=== PATIENT | female | born 1945 | race Caucasian/White ===

== ENCOUNTER 2018-06-04 09:23 | Inpatient (IN) ==
[2018-06-04] MEDS ORDERED: Furosemide 40 MG/4 ML VIAL IVP ONE (09:58)
--- NOTE | 2018-06-04 10:02 | Emergency Department Note ---
Disposition Clinical Impression: Pedal edema Dyspnea Qualifiers: Dyspnea type: unspecified Qualified Code(s): R06.00 - Dyspnea, unspecified Disposition: Admitted As Inpatient Condition: Fair General Adult HPI - General Chief complaint: ED Extremity Problem,Nontraumatic Stated complaint: BLE edema,anxiety Time Seen by Provider: 06/04/18 09:52 Source: patient Mode of arrival: ambulatory Limitations: no limitations Nursing Notes Reviewed: Yes Vital Signs Reviewed: Yes - History of Present Illness HPI Narrative: Patient with a history of COPD as well as CHF and recently diagnosed adenocarcinoma of lung disease Dr. Krishnan in radiation oncology presents for evaluation of increased swelling of the lower extremities which started proximally 2 weeks ago. Last Sunday she was placed on 80 mg of Lasix which she has been taking without increased urination or improvement of symptoms. The patient was seen at [facility] yesterday and placed on steroids and Levaquin for presumed COPD exacerbation versus pneumonia. The patient has not been having fevers or chills. She has not been having productive cough. The patient has had increased shortness of breath exertion as well as inability to lay flat. Patient underwent most recent hospital admission in May 08 at [place] for lung biopsy. The patient states that she is supposed to undergo a PET scan as well as a CAT scan that has been requested by Dr. Krishnan however due to her inability to lie flat she has not been able to get any of these tests performed. Outpatient management to get her to point to have these tests done and further progress her cancer workup and treatment has been unsuccessful. The patient will undergo further evaluation for CHF and fluid retention. Patient will receive IV Lasix. Patient will undergo admission for further treatment and management. - Related Data Home Medications Medication Instructions Recorded Confirmed Albuterol Sulfate [Albuterol 0 puff IH Q4HR 05/28/18 06/04/18 Inhaler] Aspirin Enteric Coated [Aspirin EC] 81 mg PO DAILY 05/28/18 06/04/18 Atorvastatin [Lipitor] 10 mg PO HS 05/28/18 06/04/18 Buspirone HCl [Buspar] 15 mg PO TID PRN 05/28/18 06/04/18 Esomeprazole Magnesium [Nexium] 20 mg PO DAILY 05/28/18 06/04/18 Furosemide [Lasix] 80 mg PO DAILY 05/28/18 06/04/18 Ipratropium/Albuterol Sulfate 3 ml IH Q4H PRN 05/28/18 06/04/18 [Iprat-Albut 0.5-3(2.5) mg/3 ml] Lisinopril [Zestril] 10 mg PO DAILY 05/28/18 06/04/18 Oxygen 1 each .ROUTE AD 05/28/18 06/04/18 Tiotropium [Spiriva] 18 mcg IH 0700 05/28/18 06/04/18 Mometasone/Formoterol [Dulera 200 2 puff IH BID 06/04/18 06/04/18 Mcg/5 Mcg Inhaler] levoFLOXacin [Levaquin] 500 mg PO DAILY 06/04/18 06/04/18 predniSONE [PredniSONE] 60 mg PO DAILY 06/04/18 06/04/18 Allergies Allergy/AdvReac Type Severity Reaction Status Date / Time Erythromycin Base AdvReac Rash Verified 05/28/18 14:59 All systems ED: reviewed and negative except as stated. Review of Systems: As Per HPI Constitutional: Denies: fever, chills ENT ED: Denies: congestion Cardiovascular: Reports: dyspnea on exertion. Denies: chest pain Respiratory: Reports: cough, dyspnea Gastrointestinal: Denies: abdominal pain, nausea Genitourinary: Denies: urgency Musculoskeletal: Denies: back pain Integumentary: Denies: rash, abrasion, lesions Neurological: Denies: headache Endocrine: Reports: fatigue Past Medical History - Social History Smoking Status: Current every day smoker Smokeless Tobacco Status: No Alcohol use: Reports: none Drug use: Reports: none Physical Exam General: Well appearing, nontoxic, no acute distress Head: Normocephalic Atraumatic Eyes: PERRL, EOMI ENT: Airway patent, no stridor Neck: supple Chest: Mildly decreased breath sounds Cardiac: Regular rhythm Abdomen: soft, nontender, nondistended; no guarding, rebound, or tenderness to percussion Musculoskeletal: Calves symmetric, nontender, +2 pitting edema through the cast Skin: No rash, normal skin tone Neuro: Alert and Oriented to person, place, and time; No focal deficit, CN 2-12 symmetric and intact Course - Reevaluation(s) Reevaluation #1: Patient does have an elevated white count was started on steroids as well as antibiotics yesterday. Patient has not had a productive cough change in sputum production. The patient's does not have significant CHF symptoms. She does have overall increased amounts of swelling and her overall picture is not clear. Discussed with the hospitalist her overall symptoms. This point she cannot undergo further evaluation for possible vascular congestion secondary to possible mass versus PE. At this time we will go ahead and admit the patient. The patient can receive Dopplers as well as further workup as an inpatient. The case was discussed with the hospitalist and he is agreeable with plan. Vital Signs Temperature 97.9 F 06/04/18 09:33 Pulse Rate 93 06/04/18 09:33 Respiratory Rate 18 06/04/18 09:33 Blood Pressure 168/82 06/04/18 09:33 O2 Sat by Pulse Oximetry 93 06/04/18 09:33 Temperature 97.7 F 06/04/18 18:48 Pulse Rate 106 06/04/18 18:48 Respiratory Rate 17 06/04/18 18:48 Blood Pressure 152/75 06/04/18 18:48 O2 Sat by Pulse Oximetry 91 06/04/18 18:48 Oxygen Delivery Oxygen Delivery Nasal Cannula Medical Decision Making - Lab Data Result diagrams: 06/04/18 10:06/04/18 10:09 Lab Results 06/04/18 06/04/18 06/04/18 Range/Units 10: 10: 10:09 WBC 15.3 H (4.3-11.1) K/mcL RBC 4.39 (3.82-4.97) M/mcL Hgb 11.2 L (11.5-15.4) g/dL Hct 34.2 L (35.3-44.9) % MCV 77.9 L (83.0-100.0) fL MCH 25.5 L (28.0-33.3) pg MCHC 32.7 (31.6-35.5) g/dL RDW 14.8 H (11.5-14.5) % Plt Count 357 (140-400) K/mcL MPV 9.3 L (9.4-12.4) fL Immature Gran % 0.9 (0-4) % Seg Neutrophils % 89.5 % Lymphocytes % 3.9 % Monocytes % 5.6 % Eosinophils % 0.0 % Basophils % 0.1 % Neutrophils # 13.7 H (1.6-8.9) K/mcL Lymphocytes # 0.6 (0.6-4.6) K/mcL Monocytes # 0.9 (0.0-1.3) K/mcL Eosinophils # 0.0 (0.0-0.6) K/mcL Basophils # 0.0 (0.0-0.2) K/mcL Sodium 126 L (136-145) mEq/L Potassium 3.7 (3.5-5.1) mEq/L Chloride 83 L (98-107) mEq/L Carbon Dioxide 34 H (23-29) mEq/L BUN 12 (8-23) mg/dL Creatinine 0.76 (0.60-1.20) mg/dL Est GFR ( Amer) > 60 (> 60) Est GFR (Non-Af Amer) > 60 (> 60) BUN/Creatinine Ratio 16 (6-26) Glucose 132 H (70-105) mg/dL Calculated Osmolality 264 L (280-300) Calcium 9.6 (8.6-10.3) mg/dL Total Bilirubin 0.4 (0.3-1.0) mg/dL Direct Bilirubin 0.1 (0.0-0.2) mg/dL Indirect Bilirubin 0.3 (0.0-1.2) mg/dL AST 10 L (13-39) Units/L ALT 7 (7-52) Units/L Alkaline Phosphatase 73 (34-104) Units/L Troponin I < 0.03 (< 0.04) ng/mL B-Natriuretic Peptide 43 (Less than 100) pg/mL Serum Total Protein 6.7 (6.4-8.9) g/dL Albumin 3.7 (3.5-5.7) g/dL Globulin 3.0 (2.4-3.5) g/dL Albumin/Globulin Ratio 1.2 (1.1-2.2)
[2018-06-04] MEDS ORDERED: *HR* LORazepam 2 MG/ML VIAL IVP ONE ×2 (10:20→11:24)
[2018-06-04 10:27] LABS: Basophils % 0.1 %; Hematocrit 34.2 % (35.3-44.9); Hemoglobin 11.2 g/dL (11.5-15.4); Immature Granulocytes % 0.9 % (0-4); Lymphocytes # 0.6 K/mcL (0.6-4.6); Lymphocytes % 3.9 %; Mean Corpuscular HGB Conc 32.7 g/dL (31.6-35.5); Mean Corpuscular Hemoglobin 25.5 pg (28.0-33.3); Mean Corpuscular Volume 77.9 fL (83.0-100.0); Mean Platelet Volume 9.3 fL (9.4-12.4); Monocytes # 0.9 K/mcL (0.0-1.3); Monocytes % 5.6 %; Neutrophils # 13.7 K/mcL (1.6-8.9); Platelet Count 357 K/mcL (140-400); Red Blood Count 4.39 M/mcL (3.82-4.97); Red Cell Distribution Width 14.8 % (11.5-14.5); Segmented Neutrophils % 89.5 %
[2018-06-04 10:48] LABS: Alanine Aminotransferase 7 Units/L (7-52); Albumin 3.7 g/dL (3.5-5.7); Albumin/Globulin Ratio 1.2 (1.1-2.2); Alkaline Phosphatase 73 Units/L (34-104); Aspartate Amino Transferase 10 Units/L (13-39); BUN/Creatinine Ratio 16 (6-26); Bilirubin,Direct 0.1 mg/dL (0.0-0.2); Bilirubin,Indirect 0.3 mg/dL (0.0-1.2); Bilirubin,Total 0.4 mg/dL (0.3-1.0); Blood Urea Nitrogen 12 mg/dL (8-23); Calcium 9.6 mg/dL (8.6-10.3); Carbon Dioxide 34 mEq/L (23-29); Chloride 83 mEq/L (98-107); Glucose 132 mg/dL (70-105); Osmolality,Calculated 264 (280-300); Potassium 3.7 mEq/L (3.5-5.1); Sodium 126 mEq/L (136-145); Total Protein 6.7 g/dL (6.4-8.9); eGFR For Non-African Americans > 60 (> 60)
[2018-06-04 10:49] LABS: Troponin I < 0.03 ng/mL (< 0.04)
[2018-06-04] MEDS ORDERED: Ipratropium/Albuterol Neb 3 ML IH ONE (11:24)
[2018-06-04] MEDS ORDERED: methylPREDNISolone 125 MG/2 ML VIAL IVP ONE (11:24)
[2018-06-04] MEDS ORDERED: Ondansetron 4 MG/2 ML VIAL IVP ONE (11:52)
[2018-06-04] MEDS ORDERED: *HR* HYDROcodone/Acet 5/325 mg TABLET PO PRN (13:46)
[2018-06-04] MEDS ORDERED: Naloxone 0.4 MG/ML INJ IVP PRN (13:46)
[2018-06-04] MEDS ORDERED: Ondansetron 4 MG/2 ML VIAL IVP PRN (13:52)
--- NOTE | 2018-06-04 14:17 | Internal Med History&Physical ---
Date of Encounter: 06/04/18 Time of Encounter: 13:00 Internal Medicine - H&P: HPI Chief complaint: SOB/Dyspnea Admitted From: Emergency Dept Plans for Post Hospital Care: Home History of present illness: Ms. Looney is a 73 year old female w/PMH of COPD, HLD, HTN, CHF, current tobacco abuse, and hiatal hernia presents from the ED w/CC of SOB/dyspnea for the past two weeks. Pt. reports that sx began approx. two weeks ago w/bilateral pedal edema and SOB. States she was admitted on at [facility] for biopsy of RUL. Pt. returned home and began having swelling of LEs. PCP placed her on 80 mg PO lasix daily which pt. states did not help. Denies hx of DVT/PE. Reports that she has been sleeping sitting up in chair since May.30. Pt. unable to lay flat for further testing of diagnosed adenocarcinoma. Reports smoking 1 cigarette daily. Pt. reports cough w/sputum production, orthopnea, diarrhea, SOB /dyspnea, and pedal edema but denies recent illness, fever, chills, nausea, vomiting, headache, changes in vision, CP, abdominal pain, constipation, dizziness, lightheadedness, numbness, tingling, pre-syncope, or syncope. Past Med Surg Social Fam HX - Past Medical History Source: patient Medical history: CHF, COPD, hyperlipidemia, hypertension, other (Hiatal hernia) Additional medical history: lung cancer, adeno carcinoma, Psychiatric history: anxiety - Social History Smoking Status: Current every day smoker Packs per day: 1 cigarette daily Smokeless Tobacco Status: No Alcohol use: none Drug use: none Current living situation: Home Activity Level: Independent ambulation Recent Out of Country Travel Within the Last 8 Weeks: No Exposure or Possible Exposure to Illness During Travel: No - Family History Father Race: Family Member Ethnicity: Non- Living Status: Age at : 72 Cause of : Blood clot Hx Family Cardiac Disorders: Yes (Heart valve issues, DVT) Hx Family Respiratory Disorders: Yes (Black lung) Mother Race: Family Member Ethnicity: Non- Living Status: Age at : 93 Cause of : Pneumonia Hx Family Cancer: Yes (Skin cancer) Hx Family Neurologic Disorders: Yes (Dementia) Sister Race: Family Member Ethnicity: Non- Living Status: Age at : 32 Cause of : Suicide Hx Family Respiratory Disorders: Yes (COPD) Hx Family Cancer: Yes (Colon cancer) Internal Medicine - H&P: Meds Albuterol Sulfate [Albuterol Inhaler] 0 puff IH Q4HR 05/28/18 [History] Aspirin Enteric Coated [Aspirin EC] 81 mg PO DAILY 05/28/18 [History] Atorvastatin [Lipitor] 10 mg PO HS 05/28/18 [History] Buspirone HCl [Buspar] 15 mg PO TID PRN 05/28/18 [History] Esomeprazole Magnesium [Nexium] 20 mg PO DAILY 05/28/18 [History] Furosemide [Lasix] 80 mg PO DAILY 05/28/18 [History] Ipratropium/Albuterol Sulfate [Iprat-Albut 0.5-3(2.5) mg/3 ml] 3 ml IH Q4H PRN 05/28/18 [History] Lisinopril [Zestril] 10 mg PO DAILY 05/28/18 [History] Oxygen 1 each .ROUTE AD 05/28/18 [History] Tiotropium [Spiriva] 18 mcg IH 0700 05/28/18 [History] Mometasone/Formoterol [Dulera 200 Mcg/5 Mcg Inhaler] 2 puff IH BID 06/04/18 [ History] levoFLOXacin [Levaquin] 500 mg PO DAILY 06/04/18 [History] predniSONE [PredniSONE] 60 mg PO DAILY 06/04/18 [History] 3 Allergy/AdvReac Type Severity Reaction Status Date / Time Erythromycin Base AdvReac Rash Verified 05/28/18 14:59 All Systems PM: A 10-system review of systems was performed and is negative for pertinent findings except as documented above in the HPI. - Constitutional Constitutional: as per HPI, weight gain, no chills, no fever(s), no night sweats - EENT Eyes: no change in vision, no discharge, no pain, no photophobia Ears: no ear discharge, no ear pain, no tinnitus Nose, mouth and throat: no dysphagia, no nasal discharge, no neck pain, no sore throat - Breasts Breasts: as per HPI - Cardiovascular Cardiovascular ROS IM: as per HPI, dyspnea, dyspnea on exertion, edema, orthopnea, no chest pain, no diaphoresis, no lightheadedness, no palpitations, no syncope - Respiratory Respiratory: as per HPI, cough, dyspnea, dyspnea on exertion, no wheezing, no excessive phlegm production - Gastrointestinal Gastrointestinal: as per HPI, diarrhea, no abdominal pain, no hematemesis, no hematochezia, no melena, no nausea, no vomiting - Genitourinary Genitourinary: no change in urinary stream, no dysuria, no flank pain, no hematuria Menstruation: as per HPI - Musculoskeletal Musculoskeletal ROS IM: no numbness, no tingling - Integumentary Integumentary IM: as per HPI, no rash, no unusual bruising - Neurological Neurological ROS: no confusion, no convulsions, no focal weakness, no numbness, no tingling, no tremor(s) - Psychiatric Psychiatric: as per HPI, anxiety - Endocrine Endocrine IM: as per HPI - Hematologic/Lymphatic Hematologic/Lymphatic: no easy bruising - Allergic/Immunologic Allergic/Immunologic: as per HPI - Constitutional Vitals: Temp Pulse Resp BP Pulse Ox 97.5 F L 108 18 164/76 93 06/04/18 13:16 06/04/18 13:16 06/04/18 13:16 06/04/18 13:16 06/04/18 13:16 General appearance: Present: cooperative, mild distress (Respiratory SOB), A&O X 3, pleasant, obese, answers questions appropriately Exam: Pt. examined at bedside. Pt. was SOB and using accessory muscles for breathing during exam. Denies recent illness, fever, chills, N/V, CP. States she has been sleeping upright in chair at home since May 30. 2+ pitting edema in bilateral LEs. Denies any other complaints at this time. VS: 97.5F temp, HR 108 , RR 18, BP 164/76, SpO2 93% on 3L via NC. - Head Head exam: Present: atraumatic, normocephalic - Eye Eye exam: Present: PERRL, conjuntiva pink, sclera anicteric Pupils: Present: PERRL - ENT ENT exam: Present: normal exam - Neck Neck exam general surgery: Present: normal inspection, supple, trachea midline. Absent: lymphadenopathy - Respiratory Respiratory exam: Present: accessory muscle use, wheezes, tachypnea - Cardiovascular Cardiovascular exam: Present: RRR, +S1, +S2. Absent: diastolic murmur, gallop, rubs, systolic murmur - GI/Abdominal GI/Abdominal exam: Present: normal bowel sounds, soft, no peritoneal signs. Absent: distended, tenderness - Rectal Rectal exam: Present: deferred - Additional comments: exam deferred. - Extremities Exam Extremities exam: Present: pedal edema (Bilateral 2+), warm, radial pulses palpable and symmetrical. Absent: calf tenderness, cyanotic - Back Exam Back exam: Present: normal inspection - Neurological Exam Neurological exam: Present: alert, CN II-XII intact, oriented X3, no focal deficits. Absent: pronater drift, facial droop, speech deficit - Psychiatric Psychiatric exam: Present: normal affect, normal mood - Skin Skin exam: Present: dry, intact Internal Med - H&P Results - Labs CBC & Chem 7: 06/04/18 10:09 06/04/18 10:09 - EKG Data EKG shows normal: sinus rhythm - EKG Data Prior EKG available for review: no EKG comments: 06/04/18 14:33 EKG dated 06/04/18 shows sinus rhythm. - Diagnostic Studies Chest x-ray Additional comments: Impressions Chest X-Ray 06/04/18 00:00 IMPRESSION: Hazy opacification of the right upper lobe secondary to a large right upper lobe mass identified on previous chest CT of 05/08/2018. D/ / 06/04/2018 11:01:21 Derick Aguayo MD / german Interpreting Provider: Derick Aguayo MD - Assessment and plan (1) COPD exacerbation Current Visit: Yes Status: Acute Assessment and plan: Acute COPD exacerbation versus CHF exacerbation. Pt. reports bilateral pedal edema and orthopnea for the past two weeks. Also reports current tobacco abuse. Cough w/sputum production. IVPB Zosyn for bronchitis coverage. Continue pts. inhalers and IH txs. Supplemental O2 w/titration and SpO2 monitoring. Pt. given 125 mg IV push Solu-Medrol in ED. Will follow w/80 mg Q8HR IVP Solu-Medrol. Pt. also recently dxd w/RUL adenocarcinoma which requires further testing for biopsy. [facility]. [facility] and Dr. Ramos of [facility]. 14 mg nicotine patch daily. Pt. currently meeting sepsis criteria based on WBC of 15.3, HR of 108. Sx likely d/t bronchitis complicated by COPD exacerbation versus infective process, but pt. to be monitored closely for signs of infection/sepsis. Lactic acid ordered. Blood cultures x2 ordered. Respiratory infection panel ordered. Sputum culture ordered. Pt. discussed w/ Dr. Vogt who agrees w/plan of care. Pt. is high risk for further morbidity and respiratory distress d/t current COPD exacerbation versus CHF exacerbation, bronchitis, current bilateral pedal edema and orthopnea resulting in severe SOB and dsypnea, hx; and risk factors of recently dxd adenocarcinoma of the RUL. Observation. (2) Bronchitis Current Visit: Yes Status: Acute Assessment and plan: Acute bronchitis w/COPD exacerbation. Pt. placed on PO levaquin by PCP w/o resolve in sx. IVPB Zosyn ordered for bronchitis coverage d/t pts. allergy to mycins. Supplemental O2 w/titration and SpO2 monitoring. Sputum culture. Respiratory infection panel ordered. (3) SOB (shortness of breath) Current Visit: Yes Status: Acute Assessment and plan: Acute SOB/dyspnea for the past two weeks. Pt. denies hx of DVT/PE. Pt. states that she has anxiety w/things over her face and cannot tolerate BiPAP or CPAP. Supplemental O2 w/titration and SpO2 monitoring. Will change NC to Oxymask if needed. Continue pts. inhalers for COPD. Falls/safety precautions and up w/ assist d/t SOB/dyspnea. (4) Pedal edema Current Visit: Yes Status: Acute Assessment and plan: Acute bilateral pedal edema for the past two weeks. 2+. PO lasix not effective. Will administer 20 mg IVP lasix BID to start since pt. has no hx of lasix use. 1.5L daily fluid restriction. Monitor I&O and daily weight. (5) Hyponatremia Current Visit: Yes Status: Acute Assessment and plan: Acute hyponatremia w/sodium of 126 and chloride 83. CHF versus SIADH. D/t pedal edema and orthopnea, pt. unable to tolerate IV fluids at this time. PO sodium 1 gm daily. Monitor sodium/chloride in f/u labs to ensure sodium does not increase >8 mEq in 24 hour period. Continuous cardiac telemetry. (6) Mass of upper lobe of right lung Current Visit: Yes Status: Acute Assessment and plan: Hx of recent dx of adenocarcinoma of RUL. Pt. has been unable to undergo further testing d/t inability to lay flat. Pt. to f/u w/Dr[facility] as OP as well as Dr. Ramos of [facility]. (7) CHF (congestive heart failure) Current Visit: Yes Status: Chronic Assessment and plan: Hx of CHF w/o formal dx. CHF versus SIADH. Pts. BNP 43 on admission. Pt. reports bilateral pedal edema for the past two weeks w/SOB and dyspnea and orthopnea. Echocardiogram. 1.5L daily fluid restriction. Continuous cardiac telemetry. Pt. was taking 80 mg PO lasix per PCP for one week which did not help. 20 mg IVP lasix BID ordered. Monitor I&O and daily weight. Qualifiers: Heart failure type: unspecified Qualified Code(s): I50.9 - Heart failure, unspecified (8) HLD (hyperlipidemia) Current Visit: Yes Status: Chronic Assessment and plan: Hx of chronic HLD. Lipid panel in a.m. labs. Continue pts. Lipitor. Qualifiers: Hyperlipidemia type: pure hypercholesterolemia Qualified Code(s): E78.00 - Pure hypercholesterolemia, unspecified; E78.0 - Pure hypercholesterolemia (9) HTN (hypertension) Current Visit: Yes Status: Chronic Assessment and plan: Hx of chronic HTN. Monitor pt. and VS. Continue pts. lisinopril. IVP hydralazine ordered w/parameters. Qualifiers: Hypertension type: essential hypertension Qualified Code(s): I10 - Essential (primary) hypertension (10) Hiatal hernia Current Visit: Yes Status: Chronic Assessment and plan: Hx of chronic hiatal hernia. Continue pts. Nexium. (11) Tobacco abuse Current Visit: Yes Status: Chronic Assessment and plan: Hx of chronic tobacco abuse. Pt. reports smoking 1 cigarette daily. 14 mg. nicotine patch ordered daily. (12) DVT prophylaxis Current Visit: Yes Status: Acute Assessment and plan: SQ heparin 5,000 units Q8HR for DVT prophylaxis. Monitor pt. for signs of bleeding. - Time Spent With Patient Total time spent is greater than 50% in coordination of care (as documented) at patient's floor/unit and/or counseling patient: Greater than 35 minutes
[2018-06-04] MEDS: Furosemide 20 MG/2 ML VIAL IVP SCH (16:50)
[2018-06-04] MEDS: Piperacillin/Tazobactam 3.375 GM in 0.9 % Sodium Chloride Mini Bag 100 ML IVPB SCH (16:50)
[2018-06-04] MEDS: methylPREDNISolone 125 MG/2 ML VIAL IVP SCH (16:58)
[2018-06-04] MEDS: Nicotine 14 MG PATCH.TD24 TD SCH (16:58)
[2018-06-04 18:13] LABS: Adenovirus Not Detected (Not Detect); Bordetella Pertussis Not Detected (Not Detect); Chlamydophila pneumoniae Not Detected (Not Detect); Coronavirus 229E Not Detected (Not Detect); Coronavirus HKU1 Not Detected (Not Detect); Coronavirus NL63 Not Detected (Not Detect); Coronavirus OC43 Not Detected (Not Detect); Human Metapneumovirus Not Detected (Not Detect); Human Rhinovirus/Enterovirus Not Detected (Not Detect); Influenza A Subtype 2009 H1 Not Detected (Not Detect); Influenza A Untypeable Not Detected (Not Detect); Influenza B Not Detected (Not Detect); Mycoplasma pneumoniae Not Detected (Not Detect); Parainfluenza Virus 1 Not Detected (Not Detect); Parainfluenza Virus 2 Not Detected (Not Detect); Parainfluenza Virus 3 Not Detected (Not Detect); Parainfluenza Virus 4 Not Detected (Not Detect); Respiratory Syncytial Virus Not Detected (Not Detect)
[2018-06-04] MEDS ORDERED: Perflutren Lipid Microsphere 1.3 ML in 0.9 % Sodium Chloride 8.7 ML IVP ONE (18:38)
--- NOTE | 2018-06-04 19:12 | Electrocardiograph Report ---
[address] [place], [place] [address] Test Date: 2018-06-04 Pat Name: Diann Looney Department: [id number] Room: 3B Gender: F Power Crane Operator: : [id number] Requested By: [id number] Order Number: [id number] Reading MD: Terry Onofre Measurements Intervals [place] Rate: 92 P: 75 DC: 154 QRS: 69 QRSD: 86 T: 58 QT: 364 QTc: 451 Interpretive Statements Sinus rhythm Electronically Signed On 06-04-2018 19:11:25 EDT by Terry Onofre
[2018-06-04] MEDS: Ipratropium/Albuterol Neb 3 ML IH PRN (19:36)
[2018-06-04] MEDS: *HR* Heparin 5,000 UNIT/ML VIAL SQ SCH (22:00)
[2018-06-04] MEDS: Lactobacillus 1 EACH CAP.SPRINK PO SCH (22:00)
[2018-06-05] MEDS: methylPREDNISolone 125 MG/2 ML VIAL IVP SCH ×3 (00:22→15:36)
[2018-06-05] MEDS: Piperacillin/Tazobactam 3.375 GM in 0.9 % Sodium Chloride Mini Bag 100 ML IVPB SCH ×3 (00:23→15:38)
[2018-06-05] MEDS: *HR* LORazepam 2 MG/ML VIAL IVP PRN (02:41)
[2018-06-05] MEDS: *HR* Heparin 5,000 UNIT/ML VIAL SQ SCH ×3 (06:31→22:02)
[2018-06-05] MEDS: Lactobacillus 1 EACH CAP.SPRINK PO SCH ×2 (08:27→22:01)
[2018-06-05] MEDS: Furosemide 20 MG/2 ML VIAL IVP SCH ×2 (08:27→15:34)
[2018-06-05] MEDS: Aspirin Enteric Coated 81 MG Tablet PO SCH (08:28)
[2018-06-05] MEDS: Nicotine 14 MG PATCH.TD24 TD SCH (08:28)
[2018-06-05 08:30] LABS: BUN/Creatinine Ratio 16 (6-26); Blood Urea Nitrogen 16 mg/dL (8-23); Calcium 9.3 mg/dL (8.6-10.3); Carbon Dioxide 35 mEq/L (23-29); Chloride 84 mEq/L (98-107); Chol/HDL Ratio 2.9 (0-4.9); Cholesterol 165 mg/dL (< 200); Glucose 126 mg/dL (70-105); HDL Cholesterol 57 mg/dL (40-59); LDL Cholesterol,Calculated 81 mg/dL (0-99); Magnesium 1.7 mg/dL (1.6-2.6); Osmolality,Calculated 271 (280-300); Potassium 3.9 mEq/L (3.5-5.1); Sodium 129 mEq/L (136-145); Triglycerides 133 mg/dL (< 150); eGFR For Non-African Americans 53 (> 60)
[2018-06-05] MEDS: Ipratropium/Albuterol Neb 3 ML IH PRN (08:34)
[2018-06-05 09:12] LABS: Basophils % 0.1 %; Hematocrit 34.1 % (35.3-44.9); Hemoglobin 10.9 g/dL (11.5-15.4); Lymphocytes # 0.9 K/mcL (0.6-4.6); Lymphocytes % 4.6 %; Mean Corpuscular Hemoglobin 25.5 pg (28.0-33.3); Mean Corpuscular Volume 79.7 fL (83.0-100.0); Mean Platelet Volume 9.9 fL (9.4-12.4); Monocytes # 1.1 K/mcL (0.0-1.3); Monocytes % 5.7 %; Platelet Count 415 K/mcL (140-400); Red Blood Count 4.28 M/mcL (3.82-4.97); Red Cell Distribution Width 15.4 % (11.5-14.5); Segmented Neutrophils % 88.6 %
[2018-06-05] MEDS ORDERED: Tiotropium 18 MCG inhalation IH SCH (10:00)
[2018-06-05] MEDS: Ipratropium/Albuterol Neb 3 ML IH SCH ×4 (11:21→23:27)
[2018-06-05 11:36] LABS: Estimated Average Glucose 131 mg/dl; Hemoglobin A1C 6.2 %
--- NOTE | 2018-06-05 12:33 | Internal Med Progress Note ---
Hospitalist Progress Note - Encounter Date of Encounter: 06/05/18 Time of Encounter: 12:32 - Subjective Interval History: Patient was seen and examined at bedside. Patient states that she is very sleepy she did not sleep very well last night. Denies any chest pain or shortness of breath at this time - Exam Vitals: Temp Pulse Resp BP Pulse Ox 97.9 F 97 20 126/72 94 06/05/18 11:42 06/05/18 11:42 06/05/18 11:42 06/05/18 11:42 06/05/18 11:42 Exam: General appearance: Present: cooperative, mild distress (Respiratory SOB), A&O X 3, pleasant, obese, answers questions appropriately Exam: - Head Head exam: Present: atraumatic, normocephalic - Eye Eye exam: Present: PERRL, conjuntiva pink, sclera anicteric Pupils: Present: PERRL - ENT ENT exam: Present: normal exam - Neck Neck exam general surgery: Present: normal inspection, supple, trachea midline. Absent: lymphadenopathy - Respiratory Respiratory exam: Present: Decreased breath sounds, wheezes - Cardiovascular Cardiovascular exam: Present: RRR, +S1, +S2. Absent: diastolic murmur, gallop, rubs, systolic murmur - GI/Abdominal GI/Abdominal exam: Present: normal bowel sounds, soft, no peritoneal signs. Absent: distended, tenderness - Rectal Rectal exam: Present: deferred - Assessment and Plan (1) COPD exacerbation Current Visit: Yes Status: Acute Assessment and Plan: Continues to experience cough has scattered wheezes throughout with decreased breath sounds. We will continue with Solu-Medrol 80 IV every 8 hours continue with oxygen support titrated to maintain SPO2 greater than 88% Patient continues to smoke continue with nicotine patch encouraged to stop smoking Bronchodilators Continue with Zosyn (2) Bronchitis Current Visit: Yes Status: Acute Assessment and Plan: Acute bronchitis w/COPD exacerbation. Pt. placed on PO levaquin by PCP w/o resolve in sx. IVPB Zosyn ordered for bronchitis coverage d/t pts. allergy to mycins. Supplemental O2 w/titration and SpO2 monitoring. Sputum culture. Respiratory infection panel ordered 06/05 Continues to have cough we will continue with Zosyn and oxygen supplementation. Respiratory panel is negative (3) CHF (congestive heart failure) Current Visit: Yes Status: Chronic Assessment and Plan: Hx of CHF w/o formal dx. CHF versus SIADH. Pts. BNP 43 on admission. Pt. reports bilateral pedal edema for the past two weeks w/SOB and dyspnea and orthopnea. Echocardiogram. 1.5L daily fluid restriction. Continuous cardiac telemetry. Pt. was taking 80 mg PO lasix per PCP for one week which did not help. 20 mg IVP lasix BID ordered. Monitor I&O and daily weight. 06/05 History of CHF has had bilateral pedal edema for the past 2 weeks with increased shortness of breath dyspnea and orthopnea Swelling has improved Continue with fluid restriction Cardiac echo with EF Greater than 70% normal LV chamber size wall thickness and function mild left ventricular diastolic dysfunction Continue with fluid restriction Monitor intake output -daily weights continue with IV Lasix (4) Pedal edema Current Visit: Yes Status: Acute Assessment and Plan: Acute bilateral pedal edema for the past two weeks. 2+. PO lasix not effective. Will administer 20 mg IVP lasix BID to start since pt. has no hx of lasix use. 1.5L daily fluid restriction. Monitor I&O and daily weight. 06/05 pedal edema has improved we will continue with Lasix and fluid restrictions monitor intake and output daily weights (5) SOB (shortness of breath) Current Visit: Yes Status: Acute Assessment and Plan: Acute SOB/dyspnea for the past two weeks. Pt. denies hx of DVT/PE. Pt. states that she has anxiety w/things over her face and cannot tolerate BiPAP or CPAP. Supplemental O2 w/titration and SpO2 monitoring. Will change NC to Oxymask if needed. Continue pts. inhalers for COPD. Falls/safety precautions and up w/ assist d/t SOB/dyspnea. 06/05 Continue with nasal cannula maintaining a strict 2 g and 88% Continue with diuretics Continue with bronchodilators and steroids (6) HLD (hyperlipidemia) Current Visit: Yes Status: Chronic Assessment and Plan: Hx of chronic HLD. Lipid panel in a.m. labs. Continue pts. Lipitor. (7) HTN (hypertension) Current Visit: Yes Status: Chronic Assessment and Plan: Hx of chronic HTN. Monitor pt. and VS. Continue pts. lisinopril. IVP hydralazine ordered w/parameters. (8) Hiatal hernia Current Visit: Yes Status: Chronic Assessment and Plan: Hx of chronic hiatal hernia. Continue pts. Nexium. (9) DVT prophylaxis Current Visit: Yes Status: Acute Assessment and Plan: SQ heparin 5,000 units Q8HR for DVT prophylaxis. Monitor pt. for signs of bleeding. (10) Tobacco abuse Current Visit: Yes Status: Chronic Assessment and Plan: Hx of chronic tobacco abuse. Pt. reports smoking 1 cigarette daily. 14 mg. nicotine patch ordered daily. (11) Mass of upper lobe of right lung Current Visit: Yes Status: Acute Assessment and Plan: Hx of recent dx of adenocarcinoma of RUL. Pt. has been unable to undergo further testing d/t inability to lay flat. [facility] Ramos of [facility]. (12) Hyponatremia Current Visit: Yes Status: Acute Assessment and Plan: Acute hyponatremia w/sodium of 126 and chloride 83. CHF versus SIADH. D/t pedal edema and orthopnea, pt. unable to tolerate IV fluids at this time. PO sodium 1 gm daily. Monitor sodium/chloride in f/u labs to ensure sodium does not increase >8 mEq in 24 hour period. Continuous cardiac telemetry 06/05. Sodium slightly improving a 129 We will obtain urinalysis creatinine and sodium Continue with Lasix and fluid resection DVT Prophylaxis: Heparin subcutaneous - Time Spent with Patient Total time spent is greater than 50% in coordination of care (as documented) at patient's floor/unit and/or counseling patient: Internal Medicine: Result - Labs CBC & Chem 7: 06/05/18 06:59 06/05/18 06:59 Labs: Short CBC 06/05/18 Range/Units 06:59 WBC 19.1 H (4.3-11.1) K/mcL Hgb 10.9 L (11.5-15.4) g/dL Hct 34.1 L (35.3-44.9) % Plt Count 415 H (140-400) K/mcL Neutrophils # 17.0 H (1.6-8.9) K/mcL BMP 06/04/18 06/05/18 22:30 06:59 Sodium 128 L 129 L Potassium 3.9 Chloride 84 L Carbon Dioxide 35 H BUN 16 Creatinine 1.03 Glucose 126 H Calcium 9.3 - Impressions Impressions Echocardiogram 06/04/18 13:42 Impressions: Sinus tachycardia. LVEF >70%. Normal LV chamber size, wall thickness and function. Mild left ventricular diastolic dysfunction. Normal right ventricular structure and function. Unable to estimate RVSP due to lack of TR jet. Consult Discharge Plan - Plan Referrals: Kavon Lucas, [Primary Care Provider] - (3) CHF (congestive heart failure) Qualifiers: Heart failure type: unspecified (6) HLD (hyperlipidemia) Qualifiers: Hyperlipidemia type: pure hypercholesterolemia Qualified Code(s): E78.00 - Pure hypercholesterolemia, unspecified; E78.0 - Pure hypercholesterolemia (7) HTN (hypertension) Qualifiers: Hypertension type: essential hypertension Qualified Code(s): I10 - Essential (primary) hypertension
[2018-06-05] MEDS ORDERED: Budesonide Neb 0.5 MG/2 ML IH ONE (19:56)
[2018-06-05] MEDS: Budesonide Neb 0.25 MG/2 ML IH SCH (20:23)
[2018-06-06] MEDS: methylPREDNISolone 125 MG/2 ML VIAL IVP SCH ×4 (00:10→23:44)
[2018-06-06] MEDS: Piperacillin/Tazobactam 3.375 GM in 0.9 % Sodium Chloride Mini Bag 100 ML IVPB SCH ×4 (00:10→23:44)
[2018-06-06] MEDS: Ipratropium/Albuterol Neb 3 ML IH SCH ×6 (03:47→23:35)
[2018-06-06 05:17] LABS: Basophils % 0.1 %; Hematocrit 31.3 % (35.3-44.9); Immature Granulocytes % 1.2 % (0-4); Lymphocytes # 0.8 K/mcL (0.6-4.6); Mean Corpuscular HGB Conc 31.9 g/dL (31.6-35.5); Mean Corpuscular Hemoglobin 25.6 pg (28.0-33.3); Mean Corpuscular Volume 80.1 fL (83.0-100.0); Mean Platelet Volume 9.4 fL (9.4-12.4); Monocytes # 0.9 K/mcL (0.0-1.3); Neutrophils # 16.9 K/mcL (1.6-8.9); Platelet Count 338 K/mcL (140-400); Red Blood Count 3.91 M/mcL (3.82-4.97); Red Cell Distribution Width 15.3 % (11.5-14.5); Segmented Neutrophils % 89.7 %
[2018-06-06 05:37] LABS: BUN/Creatinine Ratio 19 (6-26); Blood Urea Nitrogen 18 mg/dL (8-23); Calcium 8.9 mg/dL (8.6-10.3); Carbon Dioxide 35 mEq/L (23-29); Chloride 86 mEq/L (98-107); Glucose 184 mg/dL (70-105); Osmolality,Calculated 279 (280-300); Potassium 3.7 mEq/L (3.5-5.1); Sodium 131 mEq/L (136-145); eGFR For Non-African Americans 59 (> 60)
[2018-06-06] MEDS: *HR* Heparin 5,000 UNIT/ML VIAL SQ SCH ×3 (05:47→22:02)
[2018-06-06] MEDS: Budesonide Neb 0.25 MG/2 ML IH SCH ×2 (07:28→20:13)
[2018-06-06] MEDS: Aspirin Enteric Coated 81 MG Tablet PO SCH (10:04)
[2018-06-06] MEDS: Furosemide 20 MG/2 ML VIAL IVP SCH ×2 (10:04→16:49)
[2018-06-06] MEDS: Lactobacillus 1 EACH CAP.SPRINK PO SCH ×2 (10:04→22:02)
[2018-06-06] MEDS: Nicotine 14 MG PATCH.TD24 TD SCH (10:06)
[2018-06-06] MEDS: *HR* LORazepam 2 MG/ML VIAL IVP PRN ×2 (13:03→22:02)
--- NOTE | 2018-06-06 14:11 | Internal Med Progress Note ---
Hospitalist Progress Note - Encounter Date of Encounter: 06/06/18 Time of Encounter: 14:06 - Subjective Interval History: Patient was seen and examined at bedside. Patient states that she cont to be SOB and has non productive cough. Denies any CP - Exam Vitals: Temp Pulse Resp BP Pulse Ox 96.5 F L 80 18 139/71 97 06/06/18 12:08 06/06/18 12:08 06/06/18 12:08 06/06/18 12:08 06/06/18 12:08 Exam: General appearance: Present: cooperative, mild distress (Respiratory SOB), A&O X 3, pleasant, obese, answers questions appropriately Exam: - Head Head exam: Present: atraumatic, normocephalic - Eye Eye exam: Present: PERRL, conjuntiva pink, sclera anicteric Pupils: Present: PERRL - ENT ENT exam: Present: normal exam - Neck Neck exam general surgery: Present: normal inspection, supple, trachea midline. Absent: lymphadenopathy - Respiratory Respiratory exam: Present: scattered wheezes throughout - Cardiovascular Cardiovascular exam: Present: RRR, +S1, +S2. Absent: diastolic murmur, gallop, rubs, systolic murmur - GI/Abdominal GI/Abdominal exam: Present: normal bowel sounds, soft, no peritoneal signs. Absent: distended, tenderness - Rectal Rectal exam: Present: deferred - Assessment and Plan (1) COPD exacerbation Current Visit: Yes Status: Acute Assessment and Plan: Continues to experience cough has scattered wheezes better air movement We will continue with Solu-Medrol decrease to 60mg every 8hr continue with oxygen support titrated to maintain SPO2 greater than 88% Patient continues to smoke continue with nicotine patch encouraged to stop smoking Bronchodilators Continue with Zosyn will add mucinex for cough Code(s): J44.1 - Chronic obstructive pulmonary disease with (acute) exacerbation (2) Bronchitis Current Visit: Yes Status: Acute Assessment and Plan: Acute bronchitis w/COPD exacerbation. Pt. placed on PO levaquin by PCP w/o resolve in sx. IVPB Zosyn ordered for bronchitis coverage d/t pts. allergy to mycins. Supplemental O2 w/titration and SpO2 monitoring. Sputum culture. Respiratory infection panel ordered 06/05 Continues to have cough we will continue with Zosyn and oxygen supplementation. Respiratory panel is negative 06/06 cont with cough will add mucinex cont zosyn and O2 (3) CHF (congestive heart failure) Current Visit: Yes Status: Chronic Assessment and Plan: Hx of CHF w/o formal dx. CHF versus SIADH. Pts. BNP 43 on admission. Pt. reports bilateral pedal edema for the past two weeks w/SOB and dyspnea and orthopnea. Echocardiogram. 1.5L daily fluid restriction. Continuous cardiac telemetry. Pt. was taking 80 mg PO lasix per PCP for one week which did not help. 20 mg IVP lasix BID ordered. Monitor I&O and daily weight. 06/05 History of CHF has had bilateral pedal edema for the past 2 weeks with increased shortness of breath dyspnea and orthopnea Swelling has improved Continue with fluid restriction Cardiac echo with EF Greater than 70% normal LV chamber size wall thickness and function mild left ventricular diastolic dysfunction Continue with fluid restriction Monitor intake output -daily weights continue with IV Lasix 06/06 lower extremity swelling improving cont fluid restriction cont with IV lasix monitor I/O daily weights (4) Pedal edema Current Visit: Yes Status: Acute Assessment and Plan: Acute bilateral pedal edema for the past two weeks. 2+. PO lasix not effective. Will administer 20 mg IVP lasix BID to start since pt. has no hx of lasix use. 1.5L daily fluid restriction. Monitor I&O and daily weight. 06/05 pedal edema has improved we will continue with Lasix and fluid restrictions monitor intake and output daily weights 06/06 improving cont lasix and fluid restriction (5) SOB (shortness of breath) Current Visit: Yes Status: Acute Assessment and Plan: Acute SOB/dyspnea for the past two weeks. Pt. denies hx of DVT/PE. Pt. states that she has anxiety w/things over her face and cannot tolerate BiPAP or CPAP. Supplemental O2 w/titration and SpO2 monitoring. Will change NC to Oxymask if needed. Continue pts. inhalers for COPD. Falls/safety precautions and up w/ assist d/t SOB/dyspnea. 06/05 Continue with nasal cannula maintaining a strict 2 g and 88% Continue with diuretics Continue with bronchodilators and steroids 06/06 improving cont as above (6) HLD (hyperlipidemia) Current Visit: Yes Status: Chronic Assessment and Plan: Hx of chronic HLD. Lipid panel in a.m. labs. Continue pts. Lipitor. (7) HTN (hypertension) Current Visit: Yes Status: Chronic Assessment and Plan: Hx of chronic HTN. Monitor pt. and VS. Continue pts. lisinopril. IVP hydralazine ordered w/parameters. (8) Hiatal hernia Current Visit: Yes Status: Chronic Assessment and Plan: Hx of chronic hiatal hernia. Continue pts. Nexium. (9) DVT prophylaxis Current Visit: Yes Status: Acute Assessment and Plan: SQ heparin 5,000 units Q8HR for DVT prophylaxis. Monitor pt. for signs of bleeding. (10) Tobacco abuse Current Visit: Yes Status: Chronic Assessment and Plan: Hx of chronic tobacco abuse. Pt. reports smoking 1 cigarette daily. 14 mg. nicotine patch ordered daily. (11) Mass of upper lobe of right lung Current Visit: Yes Status: Acute Assessment and Plan: Hx of recent dx of adenocarcinoma of RUL. Pt. has been unable to undergo further testing d/t inability to lay flat. Pt. [facility] as Dr. Ramos of [facility]. (12) Hyponatremia Current Visit: Yes Status: Acute Assessment and Plan: Acute hyponatremia w/sodium of 126 and chloride 83. CHF versus SIADH. D/t pedal edema and orthopnea, pt. unable to tolerate IV fluids at this time. PO sodium 1 gm daily. Monitor sodium/chloride in f/u labs to ensure sodium does not increase >8 mEq in 24 hour period. Continuous cardiac telemetry 06/05. Sodium slightly improving a 129 We will obtain urinalysis creatinine and sodium Continue with Lasix and fluid resection 06/06 improving cont with fluid restriction and lasix DVT Prophylaxis: Heparin subcutaneous - Time Spent with Patient Total time spent is greater than 50% in coordination of care (as documented) at patient's floor/unit and/or counseling patient: Internal Medicine: Result - Labs CBC & Chem 7: 06/06/18 04:46 06/06/18 04:46 Consult Discharge Plan - Plan Referrals: Kavon Lucas DO [Primary Care Provider] - 06/11/18 2:45 pm (3) CHF (congestive heart failure) Qualifiers: Heart failure type: unspecified (6) HLD (hyperlipidemia) Qualifiers: Hyperlipidemia type: pure hypercholesterolemia Qualified Code(s): E78.00 - Pure hypercholesterolemia, unspecified; E78.0 - Pure hypercholesterolemia (7) HTN (hypertension) Qualifiers: Hypertension type: essential hypertension Qualified Code(s): I10 - Essential (primary) hypertension
[2018-06-06 17:15] LABS: Sodium, Urine 10.3 mEq/L
[2018-06-06] MEDS: (Mometasone/Formoterol [Dulera 200 Mcg/5 Mcg Inhaler]) IH SCH ×2 (20:17→23:00)
[2018-06-07] MEDS: Ipratropium/Albuterol Neb 3 ML IH SCH ×5 (04:07→20:22)
[2018-06-07] MEDS: *HR* Heparin 5,000 UNIT/ML VIAL SQ SCH ×3 (05:18→21:09)
[2018-06-07] MEDS: *HR* LORazepam 2 MG/ML VIAL IVP PRN ×2 (05:51→15:17)
[2018-06-07 06:13] LABS: Basophils % 0.1 %; Hematocrit 34.2 % (35.3-44.9); Hemoglobin 10.5 g/dL (11.5-15.4); Immature Granulocytes % 1.6 % (0-4); Lymphocytes # 0.7 K/mcL (0.6-4.6); Lymphocytes % 4.1 %; Mean Corpuscular HGB Conc 30.7 g/dL (31.6-35.5); Mean Corpuscular Hemoglobin 25.2 pg (28.0-33.3); Mean Corpuscular Volume 82.2 fL (83.0-100.0); Mean Platelet Volume 9.6 fL (9.4-12.4); Monocytes # 1.1 K/mcL (0.0-1.3); Monocytes % 6.1 %; Neutrophils # 15.5 K/mcL (1.6-8.9); Platelet Count 330 K/mcL (140-400); Red Blood Count 4.16 M/mcL (3.82-4.97); Red Cell Distribution Width 15.4 % (11.5-14.5); Segmented Neutrophils % 88.1 %
[2018-06-07 06:27] LABS: BUN/Creatinine Ratio 19 (6-26); Blood Urea Nitrogen 15 mg/dL (8-23); Calcium 9.2 mg/dL (8.6-10.3); Carbon Dioxide 38 mEq/L (23-29); Chloride 87 mEq/L (98-107); Glucose 172 mg/dL (70-105); Osmolality,Calculated 279 (280-300); Potassium 3.7 mEq/L (3.5-5.1); Sodium 132 mEq/L (136-145); eGFR For Non-African Americans > 60 (> 60)
[2018-06-07] MEDS: Lactobacillus 1 EACH CAP.SPRINK PO SCH ×2 (10:58→21:09)
[2018-06-07] MEDS: Aspirin Enteric Coated 81 MG Tablet PO SCH (10:58)
[2018-06-07] MEDS: Furosemide 20 MG/2 ML VIAL IVP SCH ×2 (10:59→17:16)
[2018-06-07] MEDS: methylPREDNISolone 125 MG/2 ML VIAL IVP SCH ×2 (10:59→15:17)
[2018-06-07] MEDS: Piperacillin/Tazobactam 3.375 GM in 0.9 % Sodium Chloride Mini Bag 100 ML IVPB SCH ×2 (10:59→19:16)
[2018-06-07] MEDS: Budesonide Neb 0.25 MG/2 ML IH SCH ×2 (11:12→20:21)
[2018-06-07] MEDS: Nicotine 14 MG PATCH.TD24 TD SCH (11:32)
--- NOTE | 2018-06-07 20:30 | Internal Med Progress Note ---
Hospitalist Progress Note - Encounter Date of Encounter: 06/07/18 Time of Encounter: 13:00 - Subjective Interval History: Patient was seen and examined at bedside. She is sitting up at bedside appears to be feeling much better than yesterday. She states that her breathing is much better - Exam Vitals: Temp Pulse Resp BP Pulse Ox 97.8 F 88 18 172/82 95 06/07/18 19:49 06/07/18 19:49 06/07/18 19:49 06/07/18 19:49 06/07/18 19:49 Exam: General appearance: Present: cooperative, A&O X 3, pleasant, obese, answers questions appropriately Exam: - Head Head exam: Present: atraumatic, normocephalic - Eye Eye exam: Present: PERRL, conjuntiva pink, sclera anicteric Pupils: Present: PERRL - ENT ENT exam: Present: normal exam - Neck Neck exam general surgery: Present: normal inspection, supple, trachea midline. Absent: lymphadenopathy - Respiratory Respiratory exam: Present: scattered wheezes throughout - Cardiovascular Cardiovascular exam: Present: RRR, +S1, +S2. Absent: diastolic murmur, gallop, rubs, systolic murmur - GI/Abdominal GI/Abdominal exam: Present: normal bowel sounds, soft, no peritoneal signs. Absent: distended, tenderness - Rectal Rectal exam: Present: deferred - Assessment and Plan (1) COPD exacerbation Current Visit: Yes Status: Acute Assessment and Plan: Continues to experience cough has scattered wheezes better air movement We will continue with Solu-Medrol decrease to 60mg every 8hr continue with oxygen support titrated to maintain SPO2 greater than 88% Patient continues to smoke continue with nicotine patch encouraged to stop smoking Bronchodilators Continue with Zosyn will add mucinex for cough 06/07 Continues to have wheezes we will continue with Solu-Medrol Continue with oxygen support Bronchodilators Zosyn and Mucinex Code(s): J44.1 - Chronic obstructive pulmonary disease with (acute) exacerbation (2) Bronchitis Current Visit: Yes Status: Acute Assessment and Plan: Acute bronchitis w/COPD exacerbation. Pt. placed on PO levaquin by PCP w/o resolve in sx. IVPB Zosyn ordered for bronchitis coverage d/t pts. allergy to mycins. Supplemental O2 w/titration and SpO2 monitoring. Sputum culture. Respiratory infection panel ordered 06/05 Continues to have cough we will continue with Zosyn and oxygen supplementation. Respiratory panel is negative 06/06 cont with cough will add mucinex cont zosyn and O2 06/07 cough is improving we will continue with Mucinex Zosyn every 2 (3) CHF (congestive heart failure) Current Visit: Yes Status: Chronic Assessment and Plan: Hx of CHF w/o formal dx. CHF versus SIADH. Pts. BNP 43 on admission. Pt. reports bilateral pedal edema for the past two weeks w/SOB and dyspnea and orthopnea. Echocardiogram. 1.5L daily fluid restriction. Continuous cardiac telemetry. Pt. was taking 80 mg PO lasix per PCP for one week which did not help. 20 mg IVP lasix BID ordered. Monitor I&O and daily weight. 06/05 History of CHF has had bilateral pedal edema for the past 2 weeks with increased shortness of breath dyspnea and orthopnea Swelling has improved Continue with fluid restriction Cardiac echo with EF Greater than 70% normal LV chamber size wall thickness and function mild left ventricular diastolic dysfunction Continue with fluid restriction Monitor intake output -daily weights continue with IV Lasix 06/06 lower extremity swelling improving cont fluid restriction cont with IV lasix monitor I/O daily weights 06/07 lower extremity swelling much improved Continue with fluid restriction Convert IV Lasix to oral 40 mg daily Monitor intake and output daily weights (4) Pedal edema Current Visit: Yes Status: Acute Assessment and Plan: Acute bilateral pedal edema for the past two weeks. 2+. PO lasix not effective. Will administer 20 mg IVP lasix BID to start since pt. has no hx of lasix use. 1.5L daily fluid restriction. Monitor I&O and daily weight. 06/05 pedal edema has improved we will continue with Lasix and fluid restrictions monitor intake and output daily weights 06/06 improving cont lasix and fluid restriction 06/07 Much improved pedal edema continue fluid restriction and Lasix (5) SOB (shortness of breath) Current Visit: Yes Status: Acute Assessment and Plan: Acute SOB/dyspnea for the past two weeks. Pt. denies hx of DVT/PE. Pt. states that she has anxiety w/things over her face and cannot tolerate BiPAP or CPAP. Supplemental O2 w/titration and SpO2 monitoring. Will change NC to Oxymask if needed. Continue pts. inhalers for COPD. Falls/safety precautions and up w/ assist d/t SOB/dyspnea. 06/05 Continue with nasal cannula maintaining a strict 2 g and 88% Continue with diuretics Continue with bronchodilators and steroids 06/06 improving cont as above 06/07 Source of breath is improving continue with nasal cannula maintaining SPO2 greater than 88% Continue diuretics Continue with bronchodilators and steroids (6) HLD (hyperlipidemia) Current Visit: Yes Status: Chronic Assessment and Plan: Hx of chronic HLD. Continue pts. Lipitor. (7) HTN (hypertension) Current Visit: Yes Status: Chronic Assessment and Plan: Hx of chronic HTN. Monitor pt. and VS. Continue pts. lisinopril. IVP hydralazine ordered w/parameters. (8) Hiatal hernia Current Visit: Yes Status: Chronic Assessment and Plan: Hx of chronic hiatal hernia. Continue pts. Nexium. (9) DVT prophylaxis Current Visit: Yes Status: Acute Assessment and Plan: SQ heparin 5,000 units Q8HR for DVT prophylaxis. Monitor pt. for signs of bleeding. (10) Tobacco abuse Current Visit: Yes Status: Chronic Assessment and Plan: Hx of chronic tobacco abuse. Pt. reports smoking 1 cigarette daily. 14 mg. nicotine patch ordered daily. (11) Mass of upper lobe of right lung Current Visit: Yes Status: Acute Assessment and Plan: Hx of recent dx of adenocarcinoma of RUL. Pt. has been unable to undergo further testing d/t inability to lay flat. Pt. [facility] as Dr. Ramos of [facility]. (12) Hyponatremia Current Visit: Yes Status: Acute Assessment and Plan: Acute hyponatremia w/sodium of 126 and chloride 83. CHF versus SIADH. D/t pedal edema and orthopnea, pt. unable to tolerate IV fluids at this time. PO sodium 1 gm daily. Monitor sodium/chloride in f/u labs to ensure sodium does not increase >8 mEq in 24 hour period. Continuous cardiac telemetry 06/05. Sodium slightly improving a 129 We will obtain urinalysis creatinine and sodium Continue with Lasix and fluid resection 06/06 improving cont with fluid restriction and lasix 06/07 Intended to improve 132 today Continue with fluid restriction and Lasix DVT Prophylaxis: Heparin subcutaneous - Time Spent with Patient Total time spent is greater than 50% in coordination of care (as documented) at patient's floor/unit and/or counseling patient: Internal Medicine: Result - Labs CBC & Chem 7: 06/07/18 05:40 06/07/18 05:40 Labs: Short CBC 06/07/18 Range/Units 05:40 WBC 17.6 H (4.3-11.1) K/mcL Hgb 10.5 L (11.5-15.4) g/dL Hct 34.2 L (35.3-44.9) % Plt Count 330 (140-400) K/mcL Neutrophils # 15.5 H (1.6-8.9) K/mcL BMP 06/07/18 05:40 Sodium 132 L Potassium 3.7 Chloride 87 L Carbon Dioxide 38 H BUN 15 Creatinine 0.77 Glucose 172 H Calcium 9.2 - VTE Documentation of Mechanical Device: Intermittent pneumatic compression device Consult Discharge Plan - Plan Referrals: Kavon Lucas DO [Primary Care Provider] - 06/11/18 2:45 pm (3) CHF (congestive heart failure) Qualifiers: Heart failure type: unspecified (6) HLD (hyperlipidemia) Qualifiers: Hyperlipidemia type: pure hypercholesterolemia Qualified Code(s): E78.00 - Pure hypercholesterolemia, unspecified; E78.0 - Pure hypercholesterolemia (7) HTN (hypertension) Qualifiers: Hypertension type: essential hypertension Qualified Code(s): I10 - Essential (primary) hypertension
[2018-06-08] MEDS: methylPREDNISolone 125 MG/2 ML VIAL IVP SCH ×3 (00:12→15:01)
[2018-06-08] MEDS: *HR* LORazepam 2 MG/ML VIAL IVP PRN ×3 (00:12→19:16)
[2018-06-08] MEDS: Ipratropium/Albuterol Neb 3 ML IH SCH ×6 (00:16→19:39)
[2018-06-08] MEDS ORDERED: Furosemide 40 MG/4 ML VIAL IVP ONE (00:47)
[2018-06-08] MEDS ORDERED: *HR* Morphine 2 MG/ML SYRINGE IVP ONE (00:47)
[2018-06-08] MEDS: Piperacillin/Tazobactam 3.375 GM in 0.9 % Sodium Chloride Mini Bag 100 ML IVPB SCH ×4 (00:53→22:57)
[2018-06-08 05:11] LABS: Basophils % 0.2 %; Hematocrit 34.9 % (35.3-44.9); Hemoglobin 10.8 g/dL (11.5-15.4); Lymphocytes # 0.9 K/mcL (0.6-4.6); Lymphocytes % 4.7 %; Mean Corpuscular HGB Conc 30.9 g/dL (31.6-35.5); Mean Corpuscular Hemoglobin 25.2 pg (28.0-33.3); Mean Corpuscular Volume 81.5 fL (83.0-100.0); Mean Platelet Volume 9.4 fL (9.4-12.4); Monocytes # 1.7 K/mcL (0.0-1.3); Monocytes % 8.2 %; Neutrophils # 17.1 K/mcL (1.6-8.9); Platelet Count 322 K/mcL (140-400); Red Blood Count 4.28 M/mcL (3.82-4.97); Red Cell Distribution Width 15.3 % (11.5-14.5); Segmented Neutrophils % 84.9 %
[2018-06-08 05:35] LABS: BUN/Creatinine Ratio 16 (6-26); Blood Urea Nitrogen 12 mg/dL (8-23); Calcium 9.3 mg/dL (8.6-10.3); Carbon Dioxide 42 mEq/L (23-29); Chloride 87 mEq/L (98-107); Glucose 148 mg/dL (70-105); Osmolality,Calculated 285 (280-300); Potassium 3.4 mEq/L (3.5-5.1); Sodium 136 mEq/L (136-145); eGFR For Non-African Americans > 60 (> 60)
[2018-06-08] MEDS: *HR* Heparin 5,000 UNIT/ML VIAL SQ SCH ×3 (06:25→22:56)
[2018-06-08] MEDS: Budesonide Neb 0.25 MG/2 ML IH SCH ×2 (07:36→19:39)
[2018-06-08] MEDS: Nicotine 14 MG PATCH.TD24 TD SCH (08:07)
[2018-06-08] MEDS: Lactobacillus 1 EACH CAP.SPRINK PO SCH ×2 (08:08→19:57)
[2018-06-08] MEDS: Aspirin Enteric Coated 81 MG Tablet PO SCH (08:08)
[2018-06-08] MEDS ORDERED: Furosemide 40 MG TABLET PO SCH (09:00)
--- NOTE | 2018-06-08 11:12 | Electrocardiograph Report ---
[address] [place], [place] [address] Test Date: 2018-06-05 Pat Name: Diann Looney Department: 113 Room: 3B Gender: F Reading Interventionist: : 1945 Requested By: Akshat Vogt Order Number: [id number] Reading MD: Francesca Reis Measurements Intervals [place] Rate: 80 P: 63 ND: 150 QRS: 33 QRSD: 70 T: 58 QT: 373 QTc: 409 Interpretive Statements SINUS RHYTHM Electronically Signed On 06-08-2018 11:10:33 EDT by Francesca Reis
--- NOTE | 2018-06-08 12:20 | Internal Med Progress Note ---
Hospitalist Progress Note - Encounter Date of Encounter: 06/08/18 Time of Encounter: 12:20 - Subjective Interval History: Patient was seen and examined at bedside. She is sitting up at bedside appears to be feeling much better than yesterday. She states that her breathing is much better - Exam Vitals: Temp Pulse Resp BP Pulse Ox 97.5 F L 100 16 155/75 94 06/08/18 07:20 06/08/18 07:20 06/08/18 10:59 06/08/18 07:20 06/08/18 10:59 Exam: General appearance: Present: cooperative, A&O X 3, pleasant, obese, answers questions appropriately Exam: - Head Head exam: Present: atraumatic, normocephalic - Eye Eye exam: Present: PERRL, conjuntiva pink, sclera anicteric Pupils: Present: PERRL - ENT ENT exam: Present: normal exam - Neck Neck exam general surgery: Present: normal inspection, supple, trachea midline. Absent: lymphadenopathy - Respiratory Respiratory exam: Present: scattered wheezes throughout - Cardiovascular Cardiovascular exam: Present: RRR, +S1, +S2. Absent: diastolic murmur, gallop, rubs, systolic murmur lower extremity swelling - GI/Abdominal GI/Abdominal exam: Present: normal bowel sounds, soft, no peritoneal signs. Absent: distended, tenderness - Rectal Rectal exam: Present: deferred - Assessment and Plan (1) COPD exacerbation Current Visit: Yes Status: Acute Assessment and Plan: Continues to experience cough has scattered wheezes better air movement We will continue with Solu-Medrol decrease to 60mg every 8hr continue with oxygen support titrated to maintain SPO2 greater than 88% Patient continues to smoke continue with nicotine patch encouraged to stop smoking Bronchodilators Continue with Zosyn will add mucinex for cough 06/07 Continues to have wheezes we will continue with Solu-Medrol Continue with oxygen support Bronchodilators Zosyn and Mucinex 06/08 We will decrease Solu-Medrol wheezing has improved Continue with oxygen support dilators Assessment and Mucinex Recurrent is elevated and we will check VBG Code(s): J44.1 - Chronic obstructive pulmonary disease with (acute) exacerbation (2) Bronchitis Current Visit: Yes Status: Acute Assessment and Plan: Acute bronchitis w/COPD exacerbation. Pt. placed on PO levaquin by PCP w/o resolve in sx. IVPB Zosyn ordered for bronchitis coverage d/t pts. allergy to mycins. Supplemental O2 w/titration and SpO2 monitoring. Sputum culture. Respiratory infection panel ordered 06/05 Continues to have cough we will continue with Zosyn and oxygen supplementation. Respiratory panel is negative 06/06 cont with cough will add mucinex cont zosyn and O2 06/07 cough is improving we will continue with Mucinex Zosyn every 2 (3) CHF (congestive heart failure) Current Visit: Yes Status: Chronic Assessment and Plan: Hx of CHF w/o formal dx. CHF versus SIADH. Pts. BNP 45 on admission. Pt. reports bilateral pedal edema for the past two weeks w/SOB and dyspnea and orthopnea. Echocardiogram. 1.5L daily fluid restriction. Continuous cardiac telemetry. Pt. was taking 80 mg PO lasix per PCP for one week which did not help. 20 mg IVP lasix BID ordered. Monitor I&O and daily weight. 06/05 History of CHF has had bilateral pedal edema for the past 2 weeks with increased shortness of breath dyspnea and orthopnea Swelling has improved Continue with fluid restriction Cardiac echo with EF Greater than 70% normal LV chamber size wall thickness and function mild left ventricular diastolic dysfunction Continue with fluid restriction Monitor intake output -daily weights continue with IV Lasix 06/06 lower extremity swelling improving cont fluid restriction cont with IV lasix monitor I/O daily weights 06/07 lower extremity swelling much improved Continue with fluid restriction Convert IV Lasix to oral 40 mg daily Monitor intake and output daily weights 06/08 Lower extremity without any swelling Continue with fluid restriction Bicarbonate elevated We will give IV fluid -hold a.m. Lasix and reevaluate Monitor intake output (4) Pedal edema Current Visit: Yes Status: Acute Assessment and Plan: Acute bilateral pedal edema for the past two weeks. 2+. PO lasix not effective. Will administer 20 mg IVP lasix BID to start since pt. has no hx of lasix use. 1.5L daily fluid restriction. Monitor I&O and daily weight. 06/05 pedal edema has improved we will continue with Lasix and fluid restrictions monitor intake and output daily weights 06/06 improving cont lasix and fluid restriction 06/07 Much improved pedal edema continue fluid restriction and Lasix 06/08 No swelling noted (5) SOB (shortness of breath) Current Visit: Yes Status: Acute Assessment and Plan: Acute SOB/dyspnea for the past two weeks. Pt. denies hx of DVT/PE. Pt. states that she has anxiety w/things over her face and cannot tolerate BiPAP or CPAP. Supplemental O2 w/titration and SpO2 monitoring. Will change NC to Oxymask if needed. Continue pts. inhalers for COPD. Falls/safety precautions and up w/ assist d/t SOB/dyspnea. 06/05 Continue with nasal cannula maintaining a strict 2 g and 88% Continue with diuretics Continue with bronchodilators and steroids 06/06 improving cont as above 06/07 Source of breath is improving continue with nasal cannula maintaining SPO2 greater than 88% Continue diuretics Continue with bronchodilators and steroids 06/08 Shortness of breath has improved we will continue to titrate maintaining SPO2 greater than 88 Decrease diuretics Continue with bronchodilators and steroids (6) HLD (hyperlipidemia) Current Visit: Yes Status: Chronic Assessment and Plan: Hx of chronic HLD. Continue pts. Lipitor. (7) HTN (hypertension) Current Visit: Yes Status: Chronic Assessment and Plan: Hx of chronic HTN. Monitor pt. and VS. Continue pts. lisinopril. IVP hydralazine ordered w/parameters. (8) Hiatal hernia Current Visit: Yes Status: Chronic Assessment and Plan: Hx of chronic hiatal hernia. Continue pts. Nexium. (9) DVT prophylaxis Current Visit: Yes Status: Acute Assessment and Plan: SQ heparin 5,000 units Q8HR for DVT prophylaxis. Monitor pt. for signs of bleeding. (10) Tobacco abuse Current Visit: Yes Status: Chronic Assessment and Plan: Hx of chronic tobacco abuse. Pt. reports smoking 1 cigarette daily. 14 mg. nicotine patch ordered daily. (11) Mass of upper lobe of right lung Current Visit: Yes Status: Acute Assessment and Plan: Hx of recent dx of adenocarcinoma of RUL. Pt. has been unable to undergo further testing d/t inability to lay flat. Pt. to [facility] as well as Dr[facility] Ramos of [facility]. (12) Hyponatremia Current Visit: Yes Status: Acute Assessment and Plan: Acute hyponatremia w/sodium of 126 and chloride 83. CHF versus SIADH. D/t pedal edema and orthopnea, pt. unable to tolerate IV fluids at this time. PO sodium 1 gm daily. Monitor sodium/chloride in f/u labs to ensure sodium does not increase >8 mEq in 24 hour period. Continuous cardiac telemetry 06/05. Sodium slightly improving a 129 We will obtain urinalysis creatinine and sodium Continue with Lasix and fluid resection 06/06 improving cont with fluid restriction and lasix 06/07 Intended to improve 132 today Continue with fluid restriction and Lasix 06/08 134 today continue with fluid restriction DVT Prophylaxis: Heparin subcutaneous - Time Spent with Patient Total time spent is greater than 50% in coordination of care (as documented) at patient's floor/unit and/or counseling patient: Internal Medicine: Result - Labs CBC & Chem 7: 06/08/18 04:42 06/08/18 16:08 Labs: Short CBC 06/08/18 Range/Units 04:42 WBC 20.2 H (4.3-11.1) K/mcL Hgb 10.8 L (11.5-15.4) g/dL Hct 34.9 L (35.3-44.9) % Plt Count 322 (140-400) K/mcL Neutrophils # 17.1 H (1.6-8.9) K/mcL BMP 06/08/18 04:42 Sodium 136 Potassium 3.4 L Chloride 87 L Carbon Dioxide 42 H* BUN 12 Creatinine 0.77 Glucose 148 H Calcium 9.3 - VTE Documentation of Mechanical Device: Intermittent pneumatic compression device Consult Discharge Plan - Plan Referrals: Kavon Lucas DO [Primary Care Provider] - 06/11/18 2:45 pm (3) CHF (congestive heart failure) Qualifiers: Heart failure type: unspecified (6) HLD (hyperlipidemia) Qualifiers: Hyperlipidemia type: pure hypercholesterolemia Qualified Code(s): E78.00 - Pure hypercholesterolemia, unspecified; E78.0 - Pure hypercholesterolemia (7) HTN (hypertension) Qualifiers: Hypertension type: essential hypertension Qualified Code(s): I10 - Essential (primary) hypertension
[2018-06-08 16:42] LABS: BUN/Creatinine Ratio 18 (6-26); Blood Urea Nitrogen 15 mg/dL (8-23); Calcium 9.1 mg/dL (8.6-10.3); Carbon Dioxide 42 mEq/L (23-29); Chloride 88 mEq/L (98-107); Glucose 184 mg/dL (70-105); Osmolality,Calculated 284 (280-300); Sodium 134 mEq/L (136-145); eGFR For Non-African Americans > 60 (> 60)
[2018-06-08] MEDS ORDERED: 0.9 % Sodium Chloride 1,000 ML IVC SCH (17:00)
[2018-06-08 17:24] LABS: VBG HCO3 44 mEq/L (21-27); VBG PCO2 63 mmHg (41-51); VBG PH 7.46 pH Units (7.32-7.42); VBG PO2 131 mmHg (25-50)
[2018-06-08] MEDS ORDERED: 0.9 % Sodium Chloride 500 ML IVC SCH (18:00)
[2018-06-08] MEDS: Acetaminophen 325 MG TABLET PO PRN (18:25)
[2018-06-08] MEDS: MethylPREDNISolone 40 MG/ML VIAL IVP SCH (22:56)
[2018-06-09] MEDS: Ipratropium/Albuterol Neb 3 ML IH SCH ×6 (00:01→19:45)
[2018-06-09 00:37] LABS: Basophils % 0.2 %; Hematocrit 33.8 % (35.3-44.9); Hemoglobin 10.2 g/dL (11.5-15.4); Lymphocytes # 1.4 K/mcL (0.6-4.6); Lymphocytes % 7.2 %; Mean Corpuscular HGB Conc 30.2 g/dL (31.6-35.5); Mean Corpuscular Hemoglobin 25.2 pg (28.0-33.3); Mean Corpuscular Volume 83.5 fL (83.0-100.0); Mean Platelet Volume 9.7 fL (9.4-12.4); Monocytes # 1.7 K/mcL (0.0-1.3); Monocytes % 8.7 %; Platelet Count 302 K/mcL (140-400); Red Blood Count 4.05 M/mcL (3.82-4.97); Red Cell Distribution Width 15.4 % (11.5-14.5); Segmented Neutrophils % 81.9 %
[2018-06-09] MEDS ORDERED: *HR* LORazepam 2 MG/ML VIAL IVP ONE ×3 (00:38→22:59)
[2018-06-09] MEDS ORDERED: Albuterol 2.5 MG/3 ML NEBULIZER IH ONE (00:41)
[2018-06-09] MEDS: *HR* Heparin 5,000 UNIT/ML VIAL SQ SCH ×3 (05:37→23:07)
[2018-06-09 07:42] LABS: BUN/Creatinine Ratio 21 (6-26); Blood Urea Nitrogen 15 mg/dL (8-23); Calcium 9.3 mg/dL (8.6-10.3); Carbon Dioxide 42 mEq/L (23-29); Chloride 90 mEq/L (98-107); Glucose 131 mg/dL (70-105); Osmolality,Calculated 285 (280-300); Potassium 3.7 mEq/L (3.5-5.1); Sodium 136 mEq/L (136-145); eGFR For Non-African Americans > 60 (> 60)
[2018-06-09] MEDS: Budesonide Neb 0.25 MG/2 ML IH SCH ×2 (07:56→23:42)
[2018-06-09] MEDS: Piperacillin/Tazobactam 3.375 GM in 0.9 % Sodium Chloride Mini Bag 100 ML IVPB SCH ×3 (08:16→20:01)
[2018-06-09] MEDS: Aspirin Enteric Coated 81 MG Tablet PO SCH (08:18)
[2018-06-09] MEDS: Nicotine 14 MG PATCH.TD24 TD SCH (08:18)
[2018-06-09] MEDS: MethylPREDNISolone 40 MG/ML VIAL IVP SCH ×3 (08:18→23:45)
[2018-06-09] MEDS: Lactobacillus 1 EACH CAP.SPRINK PO SCH ×2 (08:18→20:01)
[2018-06-09] MEDS ORDERED: ALPRAZolam 0.25 MG TABLET PO PRN (08:53)
[2018-06-09] MEDS ORDERED: Isovue-370 500 ML INFUS..BTL IV ONE (10:07)
[2018-06-09] MEDS ORDERED: *HR* Morphine 2 MG/ML SYRINGE IVP ONE (10:41)
--- NOTE | 2018-06-09 10:44 | Pulmonology Consult Note ---
Date of Encounter: 06/09/18 Time of Encounter: 10:33 Assessment and Plan (1) Acute and chronic respiratory failure with hypoxia Current Visit: Yes Status: Acute This is multifactorial including COPD with acute exacerbation possibility of pneumonia especially considering a postobstructive pneumonia and underlying carcinoma with possibility of lymphangitic spread. I also have concern for venous thromboembolism (PE) given underlying malignancy and fill that CTA is warranted [place] to exclude pulmonary embolus but also to further evaluate underlying lung parenchyma for consideration of pneumonia lymphangitic spread etc. -Continue supplemental O2 to keep oxygen saturation greater than 88% around 92% -Management of anxiety per primary service -CTA chest (urgent) I communicated my recs with the primary medicine service (Daysi Kahn) directly on the telephone (2) COPD exacerbation Current Visit: Yes Status: Acute Clearly having an acute COPD exacerbation -Agree with IV systemic glucocorticoids with increase to 60 mg 3 times a day -Cont schedule bronchodilators and would need hourly albuterol as needed -Stop the inhaled N-acetylcysteine as this could exacerbate her symptoms -Agree with scheduled Mucinex -She is currently on broad-spectrum antibiotics (presumably for Pneumonia) which would also cover hospital associated pathogens which is not unreasonable if she has not had MRSA swab that would be helpful in making sure this and may not be an MRSA associated infection her persistent leukocytosis may be a reflection of a systemic glucocorticoids as well she remains afebrile (3) Metabolic alkalosis Current Visit: Yes Status: Acute Patient showing evidence of acute on chronic metabolic alkalosis which I suspect is related to chronic respiratory failure with acute contraction secondary to diuresis -Recommend stopping further diuresis at this time -In fact after contrast load 24 hours of IV saline infusion (75-100cc/hr) would actually be beneficial close monitoring of her potassium and chloride the should be optimized -Consider holding lisinopril and U acute setting as tolerated by blood pressure or/and alternative as active diuresis coupled with nephrotoxic medications and contrast load would be deleterious to her renal function (4) Carcinoma of lung Current Visit: Yes Status: Acute She will need outpatient oncology and radiation oncology follow-up. 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 Dyspnea started approximately 2 weeks ago with bilateral lower extreme swelling she was evaluated on May 08 about [place] for biopsy of the right upper lobe and was started on outpatient regimen of by mouth Lasix no previous history of venous thromboembolism but has been sleeping in the chair since May 30 because of orthopnea. Since admission she has been aggressively diuresed given antibiotics and steroids by IV without significant improvement in her symptoms pulmonary was consulted for further evaluation. Per patient she had bronchoscopy therefore performed about [place] which was notable for invasion of the tumor in the right upper lobe with compression of the right middle and right lower lobe as well. The plan was to start radiation therapy after she could have mapping done but this was put on hold because she was unable to lay flat. Patient states that she has been very a chest and feels claustrophobic and has had difficulty going through imaging procedures. She says she is very short of breath then with no significant improvement since she has been admitted to the hospital. Currently saturating in the mid to high 90s on 4 L nasal cannula. Outside of feeling anxious she has had a cough and which is typically nonproductive but she says over the last day or so after starting Mucinex at that is helped her to mobilize some of the phlegm. Denies any hemoptysis denies weight loss fevers chills or sweating at night PMHx: COPD hyperlipidemia hypertension and CHF active tobacco use Past Med Surg Social Fam HX - Past Medical History Medical history: CHF, COPD, hyperlipidemia, hypertension, other (Hiatal hernia) Additional medical history: lung cancer, adeno carcinoma, Psychiatric history: anxiety - Past Surgical History Surgical History: hysterectomy - Social History Smoking Status: Current every day smoker Packs per day: 1 cigarette daily Smokeless Tobacco Status: No Alcohol use: none Drug use: none - Family History Father Race: Family Member Ethnicity: Non- Living Status: Age at : 72 Cause of : Blood clot Hx Family Cardiac Disorders: Yes (Heart valve issues, DVT) Hx Family Respiratory Disorders: Yes (Black lung) Sister Race: Family Member Ethnicity: Non- Living Status: Age at : 32 Cause of : Suicide Hx Family Respiratory Disorders: Yes (COPD) Hx Family Cancer: Yes (Colon cancer) Mother Race: Family Member Ethnicity: Non- Living Status: Age at : 93 Cause of : Pneumonia Hx Family Cardiac Disorders: Yes Hx Family Cancer: Yes (Skin cancer) Hx Family Neurologic Disorders: Yes (Dementia) Medications and Allergies Albuterol Sulfate [Albuterol Inhaler] 0 puff IH Q4HR 05/28/18 [History] Aspirin Enteric Coated [Aspirin EC] 81 mg PO DAILY 05/28/18 [History] Atorvastatin [Lipitor] 10 mg PO HS 05/28/18 [History] Buspirone HCl [Buspar] 15 mg PO TID PRN 05/28/18 [History] Esomeprazole Magnesium [Nexium] 20 mg PO DAILY 05/28/18 [History] Furosemide [Lasix] 80 mg PO DAILY 05/28/18 [History] Ipratropium/Albuterol Sulfate [Iprat-Albut 0.5-3(2.5) mg/3 ml] 3 ml IH Q4H PRN 05/28/18 [History] Lisinopril [Zestril] 10 mg PO DAILY 05/28/18 [History] Oxygen 1 each .ROUTE AD 05/28/18 [History] Tiotropium [Spiriva] 18 mcg IH 0700 05/28/18 [History] Mometasone/Formoterol [Dulera 200 Mcg/5 Mcg Inhaler] 2 puff IH BID 06/04/18 [ History] levoFLOXacin [Levaquin] 500 mg PO DAILY 06/04/18 [History] predniSONE [PredniSONE] 60 mg PO DAILY 06/04/18 [History] 3 Allergy/AdvReac Type Severity Reaction Status Date / Time Erythromycin Base AdvReac Rash Verified 05/28/18 14:59 All Systems: The remainder of the systems were reviewed and are negative Physical Examination Vital Signs: Vital Signs, Last 4 Hours Temp Pulse Resp BP Pulse Ox 06/09/18 08:01 17 165/86 98 06/09/18 07:55 17 93 06/09/18 07:19 97.8 F 91 16 165/86 95 General appearance: no acute distress Eyes: nonicteric ENT: oropharynx dry Neck: supple, no lymphadenopathy Effort: mildly labored Auscultation: bilateral: diminished breath sounds, wheezes (Inspiratory and expiratory wheezes appreciated), rhonchi Cardiovascular: regular rate and rhythm Gastrointestinal: normoactive bowel sounds, soft, non-tender Integumentary: other (Thin skin with scattered areas of ecchymotic changes) Extremities: no cyanosis, no edema, no clubbing, pink and warm Musculoskeletal: no deformities normal mental status, non-focal exam anxious Results - Laboratory Findings CBC and BMP: 06/09/18 00:12 06/09/18 06:36 Abnormal lab findings: Abnormal lab results WBC 19.6 K/mcL (4.3-11.1) H 06/09/18 00:12 Hgb 10.2 g/dL (11.5-15.4) L 06/09/18 00:12 Hct 33.8 % (35.3-44.9) L 06/09/18 00:12 MCH 25.2 pg (28.0-33.3) L 06/09/18 00:12 MCHC 30.2 g/dL (31.6-35.5) L 06/09/18 00:12 RDW 15.4 % (11.5-14.5) H 06/09/18 00:12 Neutrophils # 16.0 K/mcL (1.6-8.9) H 06/09/18 00:12 Monocytes # 1.7 K/mcL (0.0-1.3) H 06/09/18 00:12 VBG pH 7.46 pH Units (7.32-7.42) H 06/08/18 17:21 VBG pCO2 63 mmHg (41-51) H 06/08/18 17:21 VBG pO2 131 mmHg (25-50) H 06/08/18 17:21 VBG HCO3 44 mEq/L (21-27) H 06/08/18 17:21 Chloride 90 mEq/L (98-107) L 06/09/18 06:36 Carbon Dioxide 42 mEq/L (23-29) H* 06/09/18 06:36 Glucose 131 mg/dL (70-105) H 06/09/18 06:36 Hemoglobin A1c 6.2 % (-5.6) H 06/05/18 06:59 AST 10 Units/L (13-39) L 06/04/18 10:09 - Diagnostic Findings Chest x-ray: report reviewed, image reviewed - Clinical Findings Intake & Output: Intake & Output 06/08/18 06/09/18 06/09/18 23:59 07:59 15:59 Intake Total 220 / 220 100 / 100 60 / 60 Output Total 50 / 50 100 / 100 Balance 170 / 170 0 / 0 60 / 60 Weight 73 kg Consult Discharge Plan - Plan Referrals: Kavon Lucas DO [Primary Care Provider] - 06/11/18 2:45 pm
[2018-06-09] MEDS ORDERED: *HR* Morphine 2 MG/ML SYRINGE IVP PRN (10:48)
--- NOTE | 2018-06-09 10:52 | Internal Med Progress Note ---
Hospitalist Progress Note - Encounter Date of Encounter: 06/09/18 Time of Encounter: 08:30 - Subjective Interval History: Patient was seen and examined at bedside. Nursing reports that patient was anxious overnight sheexpressed that she did not want to be intubated or placed on Bipap. She is requring 4 L NC this AM and becomes SOB on exertion tachycardic and is unable to lie flat. We did have a discussion concerning code status and the patient became very emotional. I had a long discussion with the patient and the daughter outlining treatment plan and about code status. Patient again voiced that she did not want to be intubated or placed on Bipap this was witnessed by daughter as well as 3B nurse Soni. I did reviwe this case ith Dr Edmond, who did examine the patient She agreed with CXR consult pulmonology and attempt to keep patient calm. I spoke with pulmonology Dr Benoit- he recommended CTA of chest and he would evaluate patient. Discussed with patient- she again becamevery emotional expressed that she cant lie flat- and "just wants to do the test that Dr Krishnan can use to do her treatments" Again explained importance of test and that we would give her medications to calm her She agreed to CTA - Exam Vitals: Temp Pulse Resp BP Pulse Ox 97.8 F 91 17 165/86 98 06/09/18 07:19 06/09/18 07:19 06/09/18 08:01 06/09/18 08:01 06/09/18 08:01 Exam: General appearance: Present: cooperative, A&O X 3, pleasant, obese, answers questions appropriately Exam: - Head Head exam: Present: atraumatic, normocephalic - Eye Eye exam: Present: PERRL, conjuntiva pink, sclera anicteric Pupils: Present: PERRL - ENT ENT exam: Present: normal exam - Neck Neck exam general surgery: Present: normal inspection, supple, trachea midline. Absent: lymphadenopathy - Respiratory Respiratory exam: Present: wheezing noted R upper lobe- rhonchi - Cardiovascular Cardiovascular exam: Present: RRR, +S1, +S2. Absent: diastolic murmur, gallop, rubs, systolic murmur lower extremity swelling - GI/Abdominal GI/Abdominal exam: Present: normal bowel sounds, soft, no peritoneal signs. Absent: distended, tenderness - Rectal Rectal exam: Present: deferred - Assessment and Plan (1) COPD exacerbation Current Visit: Yes Status: Acute Assessment and Plan: Continues to experience cough has scattered wheezes better air movement We will continue with Solu-Medrol decrease to 60mg every 8hr continue with oxygen support titrated to maintain SPO2 greater than 88% Patient continues to smoke continue with nicotine patch encouraged to stop smoking Bronchodilators Continue with Zosyn will add mucinex for cough 06/07 Continues to have wheezes we will continue with Solu-Medrol Continue with oxygen support Bronchodilators Zosyn and Mucinex 06/08 We will decrease Solu-Medrol wheezing has improved Continue with oxygen support dilators Assessment and Mucinex Recurrent is elevated and we will check VBG 06/09 Cont with Solu medrol cont with O2 support Mucinex will added Acetylcysteine Cont Zosyn Code(s): J44.1 - Chronic obstructive pulmonary disease with (acute) exacerbation (2) Bronchitis Current Visit: Yes Status: Acute Assessment and Plan: Acute bronchitis w/COPD exacerbation. Pt. placed on PO levaquin by PCP w/o resolve in sx. IVPB Zosyn ordered for bronchitis coverage d/t pts. allergy to mycins. Supplemental O2 w/titration and SpO2 monitoring. Sputum culture. Respiratory infection panel ordered 06/05 Continues to have cough we will continue with Zosyn and oxygen supplementation. Respiratory panel is negative 06/06 cont with cough will add mucinex cont zosyn and O2 06/07 cough is improving we will continue with Mucinex Zosyn every 2 06/09 cont mucinex zosyn (3) CHF (congestive heart failure) Current Visit: Yes Status: Chronic Assessment and Plan: Hx of CHF w/o formal dx. CHF versus SIADH. Pts. BNP 45 on admission. Pt. reports bilateral pedal edema for the past two weeks w/SOB and dyspnea and orthopnea. Echocardiogram. 1.5L daily fluid restriction. Continuous cardiac telemetry. Pt. was taking 80 mg PO lasix per PCP for one week which did not help. 20 mg IVP lasix BID ordered. Monitor I&O and daily weight. 06/05 History of CHF has had bilateral pedal edema for the past 2 weeks with increased shortness of breath dyspnea and orthopnea Swelling has improved Continue with fluid restriction Cardiac echo with EF Greater than 70% normal LV chamber size wall thickness and function mild left ventricular diastolic dysfunction Continue with fluid restriction Monitor intake output -daily weights continue with IV Lasix 06/06 lower extremity swelling improving cont fluid restriction cont with IV lasix monitor I/O daily weights 06/07 lower extremity swelling much improved Continue with fluid restriction Convert IV Lasix to oral 40 mg daily Monitor intake and output daily weights 06/08 Lower extremity without any swelling Continue with fluid restriction Bicarbonate elevated We will give IV fluid -hold a.m. Lasix and reevaluate Monitor intake output 06/09 Hold lasix for now cont fluid restriction Moniotr I/O -daily weights (4) Pedal edema Current Visit: Yes Status: Acute Assessment and Plan: Acute bilateral pedal edema for the past two weeks. 2+. PO lasix not effective. Will administer 20 mg IVP lasix BID to start since pt. has no hx of lasix use. 1.5L daily fluid restriction. Monitor I&O and daily weight. 06/05 pedal edema has improved we will continue with Lasix and fluid restrictions monitor intake and output daily weights 06/06 improving cont lasix and fluid restriction 06/07 Much improved pedal edema continue fluid restriction and Lasix 06/08 No swelling noted 06/09 no swelling noted (5) SOB (shortness of breath) Current Visit: Yes Status: Acute Assessment and Plan: Acute SOB/dyspnea for the past two weeks. Pt. denies hx of DVT/PE. Pt. states that she has anxiety w/things over her face and cannot tolerate BiPAP or CPAP. Supplemental O2 w/titration and SpO2 monitoring. Will change NC to Oxymask if needed. Continue pts. inhalers for COPD. Falls/safety precautions and up w/ assist d/t SOB/dyspnea. 06/05 Continue with nasal cannula maintaining a strict 2 g and 88% Continue with diuretics Continue with bronchodilators and steroids 06/06 improving cont as above 06/07 Source of breath is improving continue with nasal cannula maintaining SPO2 greater than 88% Continue diuretics Continue with bronchodilators and steroids 06/08 Shortness of breath has improved we will continue to titrate maintaining SPO2 greater than 88 Decrease diuretics Continue with bronchodilators and steroids 06/09 She has had difficulty breathing overnight requiring increase in O2 to 4L NC hold diuretics Check CXR Consult pulmonology CTA (6) HLD (hyperlipidemia) Current Visit: Yes Status: Chronic Assessment and Plan: Hx of chronic HLD. Continue pts. Lipitor. (7) HTN (hypertension) Current Visit: Yes Status: Chronic Assessment and Plan: Hx of chronic HTN. Monitor pt. and VS. Continue pts. lisinopril. IVP hydralazine ordered w/parameters. (8) Hiatal hernia Current Visit: Yes Status: Chronic Assessment and Plan: Hx of chronic hiatal hernia. Continue pts. Nexium. (9) DVT prophylaxis Current Visit: Yes Status: Acute Assessment and Plan: SQ heparin 5,000 units Q8HR for DVT prophylaxis. Monitor pt. for signs of bleeding. (10) Tobacco abuse Current Visit: Yes Status: Chronic Assessment and Plan: Hx of chronic tobacco abuse. Pt. reports smoking 1 cigarette daily. 14 mg. nicotine patch ordered daily. (11) Mass of upper lobe of right lung Current Visit: Yes Status: Acute Assessment and Plan: Hx of recent dx of adenocarcinoma of RUL. Pt. has been unable to undergo further testing d/t inability to lay flat. [facility]. [facility] as well as Dr. Ramos of [facility]. 06/09 CXR Right upper lobe collapse, similar to prior, suspicious for underlying mass. Chest CT is suggested for further evaluation if not already performed. will obtain CTA (12) Hyponatremia Current Visit: Yes Status: Acute Assessment and Plan: Acute hyponatremia w/sodium of 126 and chloride 83. CHF versus SIADH. D/t pedal edema and orthopnea, pt. unable to tolerate IV fluids at this time. PO sodium 1 gm daily. Monitor sodium/chloride in f/u labs to ensure sodium does not increase >8 mEq in 24 hour period. Continuous cardiac telemetry 06/05. Sodium slightly improving a 129 We will obtain urinalysis creatinine and sodium Continue with Lasix and fluid resection 06/06 improving cont with fluid restriction and lasix 06/07 Intended to improve 132 today Continue with fluid restriction and Lasix 06/08 134 today continue with fluid restriction 06/09 135 today will monitor DVT Prophylaxis: Heparin subcutaneous - Time Spent with Patient Total time spent is greater than 50% in coordination of care (as documented) at patient's floor/unit and/or counseling patient: Internal Medicine: Result - Labs CBC & Chem 7: 06/09/18 00:12 06/09/18 06:36 Labs: Short CBC 10/14/18 Range/Units 00:12 WBC 19.6 H (4.3-11.1) K/mcL Hgb 10.2 L (11.5-15.4) g/dL Hct 33.8 L (35.3-44.9) % Plt Count 302 (140-400) K/mcL Neutrophils # 16.0 H (1.6-8.9) K/mcL BMP 06/08/18 06/09/18 06/09/18 16:08 00:12 06:36 Sodium 134 L 135 L 136 Potassium 4.0 3.7 Chloride 88 L 90 L Carbon Dioxide 42 H* 42 H* BUN 15 15 Creatinine 0.84 0.71 Glucose 184 H 131 H Calcium 9.1 9.3 - Impressions Impressions Chest X-Ray 06/09/18 08:11 IMPRESSION: Right upper lobe collapse, similar to prior, suspicious for underlying mass. Chest CT is suggested for further evaluation if not already performed. Developing left basilar atelectasis. D/ / Lucio Santamaria MD / Lucio Santamaria MD Interpreting Provider: Lucio Santamaria MD - VTE Documentation of Mechanical Device: Intermittent pneumatic compression device Consult Discharge Plan - Plan Referrals: Kavon Lucas DO [Primary Care Provider] - 06/11/18 2:45 pm (6) HLD (hyperlipidemia) Qualifiers: Qualified Code(s): E78.00 - Pure hypercholesterolemia, unspecified; E78.0 - Pure hypercholesterolemia (7) HTN (hypertension) Qualifiers: Qualified Code(s): I10 - Essential (primary) hypertension
[2018-06-09] MEDS ORDERED: Acetylcysteine 10% 2 ML INHSOL IH SCH (12:00)
[2018-06-09] MEDS ORDERED: Levalbuterol Neb 1.25 MG/3 ML IH STA (18:37)
[2018-06-09] MEDS ORDERED: methylPREDNISolone 125 MG/2 ML VIAL IVP ONE (18:37)
[2018-06-09] MEDS ORDERED: methylPREDNISolone 125 MG/2 ML VIAL ONE (18:40)
[2018-06-09] MEDS ORDERED: Levalbuterol Neb 1.25 MG/3 ML ONE (18:40)
[2018-06-09] MEDS ORDERED: *HR* LORazepam 0.5 MG TABLET PO PRN (18:58)
[2018-06-09] MEDS ORDERED: OXYCODONE Oral CONC 10 MG/0.5 ML ORAL.SYG SL PRN (18:59)
--- NOTE | 2018-06-09 20:40 | Event Note ---
Date of Encounter: 06/09/18 Time of Encounter: 19:18 Alerted by patient's nurse DEVEN Gunn whether transferring patient to a different floor was appropriate based on patient's wish not to be intubated. Explained to nurse that moving patient to any unit, including ICU, would not matter based on the fact that she is FULL CODE yet does NOT want to be intubated. I went to see the pts. daughter to have a private conversation about my concerns regarding her mother's current status and refusal of some txs. I asked the daughter if there was a POA in place for the pt. She stated no. I then explained to the daughter that Full Code w/o intubation is futile and would only subject her mother to needless trauma in the event she coded. I then explained the differences between the Code Statuses. She stated that she thought her mother may be confused and not understand the differences involved. She stated that her father (the pts. ) was en route to the hospital. I suggested that I come to the pts. room and explain the differences in Code Status while she and her father were present. She stated that the pt. may become upset with my presence. I suggested that she and her father explain to the patient and then have the nurse call me so I could answer any questions. Informed at 20:16 that the pt. and family would like me to come talk to them. I explained the different Code Statuses to the pt. and family and had the pt. reiterate that she did NOT want intubated. She stated she did not want intubated. Questions from the family were addressed and answered. I explained that her Code Status was her decision and to tell me what her wishes were. Pt. stated that she wished to be a DNRCCA DNI. I explained what the Code Status meant and entailed and the pt. expressed understanding and agreement. Family and nurse were present during this conversation as witnesses. Pt. was resting comfortably in bed and did not display any signs of anxiety during our conversation. Code Status was changed to DNRCCA DNI at 20:25 per the pts. request.
[2018-06-09 23:37] LABS: ABG Base Excess 14 mEq/L (-2 to 3); ABG HCO3 41 mEq/L (21-27); ABG Oxygen Saturation 92 % (95-98); ABG PCO2 63 mmHg (35-45); ABG PH 7.42 pH Units (7.32-7.45); ABG PO2 66 mmHg (85-104); ABG TCO2 43 mEq/L (20-26)
[2018-06-09] MEDS: Levalbuterol Neb 1.25 MG/3 ML IH SCH (23:39)
[2018-06-10] MEDS: Levalbuterol Neb 1.25 MG/3 ML IH SCH ×3 (04:23→14:36)
[2018-06-10 04:43] LABS: Basophils # 0.1 K/mcL (0.0-0.2); Basophils % 0.3 %; Hemoglobin 10.5 g/dL (11.5-15.4); Immature Granulocytes % 2.4 % (0-4); Mean Corpuscular HGB Conc 30.9 g/dL (31.6-35.5); Mean Corpuscular Hemoglobin 25.7 pg (28.0-33.3); Mean Corpuscular Volume 83.3 fL (83.0-100.0); Mean Platelet Volume 9.4 fL (9.4-12.4); Monocytes # 1.5 K/mcL (0.0-1.3); Monocytes % 7.4 %; Neutrophils # 17.6 K/mcL (1.6-8.9); Platelet Count 262 K/mcL (140-400); Red Blood Count 4.08 M/mcL (3.82-4.97); Red Cell Distribution Width 15.8 % (11.5-14.5); Segmented Neutrophils % 84.9 %
[2018-06-10] MEDS: *HR* Heparin 5,000 UNIT/ML VIAL SQ SCH ×2 (05:03→13:48)
[2018-06-10] MEDS: Piperacillin/Tazobactam 3.375 GM in 0.9 % Sodium Chloride Mini Bag 100 ML IVPB SCH ×2 (05:03→13:40)
[2018-06-10 05:09] LABS: BUN/Creatinine Ratio 21 (6-26); Blood Urea Nitrogen 14 mg/dL (8-23); Calcium 9.5 mg/dL (8.6-10.3); Carbon Dioxide 37 mEq/L (23-29); Chloride 92 mEq/L (98-107); Glucose 137 mg/dL (70-105); Osmolality,Calculated 285 (280-300); Potassium 4.1 mEq/L (3.5-5.1); Sodium 136 mEq/L (136-145); eGFR For Non-African Americans > 60 (> 60)
[2018-06-10] MEDS: Nicotine 14 MG PATCH.TD24 TD SCH (07:48)
[2018-06-10] MEDS: Aspirin Enteric Coated 81 MG Tablet PO SCH (07:49)
[2018-06-10] MEDS: Lactobacillus 1 EACH CAP.SPRINK PO SCH (07:49)
[2018-06-10] MEDS: MethylPREDNISolone 40 MG/ML VIAL IVP SCH (07:54)
[2018-06-10] MEDS: Budesonide Neb 0.25 MG/2 ML IH SCH (07:58)
--- NOTE | 2018-06-10 08:04 | Internal Med Progress Note ---
Hospitalist Progress Note - Encounter Date of Encounter: 06/10/18 Time of Encounter: 08:01 - Subjective Interval History: According to nursing staff patient slept comfortably after receiving Ativan. I did have a private conversation with the family has been an daughter concerning discharge planning possible hospice-the daughter did voice concern about the patient's acceptance of personal care. She states that she has been providing care at this time however the patient becomes very upset and is embarrassed because her daughters are caring for her. Discussed possible home health/hospice options she states that may be more beneficial. We also discussed results of patient's CAT scan and concerns of patient's respiratory state. Discussed possible palliative consult which they were agreeable. During our conversation the patient did call her at least twice asking him to return to bedside. I did see the patient at bedside she was very agitated and requesting to leave AGAINST MEDICAL ADVICE. She expressed that the only reason she came to the hospital was to have fluid taken off so that she can get her CAT scan and resume radiation treatment. At this time I advised the patient that it would be unsafe for her to go home due to her compromised respiratory state. She is currently receiving high-dose steroids as well as oxygen supplementation I did review CAT scan results with the patient and concerns of possible respiratory arrest and . Patient stated "I do not care I will take my chances at home". I did request the patient's stay to at least speak with oncology since that was a reason she came, she agreed. Informed patient oncology will be here to see her around lunch time again she agreed to stay. - Exam Vitals: Temp Pulse Resp BP Pulse Ox 97.6 F 91 18 161/71 95 06/10/18 07:38 06/10/18 07:38 06/10/18 07:38 06/10/18 07:38 06/10/18 07:38 Exam: General appearance: Present: A&O X 3, agitated obese, answers questions appropriately Patient would not permit me to perform physical exam - Assessment and Plan (1) COPD exacerbation Current Visit: Yes Status: Acute Assessment and Plan: Continues to experience cough has scattered wheezes better air movement We will continue with Solu-Medrol decrease to 60mg every 8hr continue with oxygen support titrated to maintain SPO2 greater than 88% Patient continues to smoke continue with nicotine patch encouraged to stop smoking Bronchodilators Continue with Zosyn will add mucinex for cough 06/07 Continues to have wheezes we will continue with Solu-Medrol Continue with oxygen support Bronchodilators Zosyn and Mucinex 06/08 We will decrease Solu-Medrol wheezing has improved Continue with oxygen support dilators Assessment and Mucinex Recurrent is elevated and we will check VBG 06/09 Cont with Solu medrol cont with O2 support Mucinex will added Acetylcysteine Cont Zosyn 06/09 Solu-Medrol increased to 60 mg every 8 yesterday we will continue Continue with oxygen support and bronchodilators Continue with Mucinex- Acetylcysteine discontinued per pulmonary's recommendations Continue with Zosyn for now Code(s): J44.1 - Chronic obstructive pulmonary disease with (acute) exacerbation (2) Bronchitis Current Visit: Yes Status: Acute Assessment and Plan: Acute bronchitis w/COPD exacerbation. Pt. placed on PO levaquin by PCP w/o resolve in sx. IVPB Zosyn ordered for bronchitis coverage d/t pts. allergy to mycins. Supplemental O2 w/titration and SpO2 monitoring. Sputum culture. Respiratory infection panel ordered 06/05 Continues to have cough we will continue with Zosyn and oxygen supplementation. Respiratory panel is negative 06/06 cont with cough will add mucinex cont zosyn and O2 06/07 cough is improving we will continue with Mucinex Zosyn every 2 06/09 cont mucinex zosyn 06/10 Mucinex and Zosyn (3) CHF (congestive heart failure) Current Visit: Yes Status: Chronic Assessment and Plan: Hx of CHF w/o formal dx. CHF versus SIADH. Pts. BNP 45 on admission. Pt. reports bilateral pedal edema for the past two weeks w/SOB and dyspnea and orthopnea. Echocardiogram. 1.5L daily fluid restriction. Continuous cardiac telemetry. Pt. was taking 80 mg PO lasix per PCP for one week which did not help. 20 mg IVP lasix BID ordered. Monitor I&O and daily weight. 06/05 History of CHF has had bilateral pedal edema for the past 2 weeks with increased shortness of breath dyspnea and orthopnea Swelling has improved Continue with fluid restriction Cardiac echo with EF Greater than 70% normal LV chamber size wall thickness and function mild left ventricular diastolic dysfunction Continue with fluid restriction Monitor intake output -daily weights continue with IV Lasix 06/06 lower extremity swelling improving cont fluid restriction cont with IV lasix monitor I/O daily weights 06/07 lower extremity swelling much improved Continue with fluid restriction Convert IV Lasix to oral 40 mg daily Monitor intake and output daily weights 06/08 Lower extremity without any swelling Continue with fluid restriction Bicarbonate elevated We will give IV fluid -hold a.m. Lasix and reevaluate Monitor intake output 06/09 Hold lasix for now cont fluid restriction Moniotr I/O -daily weights 06/10 Continue to hold Lasix does not appear to be fluid overloaded at this time continue fluid restriction monitor intake output and daily weights (4) Pedal edema Current Visit: Yes Status: Acute Assessment and Plan: Acute bilateral pedal edema for the past two weeks. 2+. PO lasix not effective. Will administer 20 mg IVP lasix BID to start since pt. has no hx of lasix use. 1.5L daily fluid restriction. Monitor I&O and daily weight. 06/05 pedal edema has improved we will continue with Lasix and fluid restrictions monitor intake and output daily weights 06/06 improving cont lasix and fluid restriction 06/07 Much improved pedal edema continue fluid restriction and Lasix 06/08 No swelling noted 06/09 no swelling noted 06/10 No swelling at this time (5) SOB (shortness of breath) Current Visit: Yes Status: Acute Assessment and Plan: Acute SOB/dyspnea for the past two weeks. Pt. denies hx of DVT/PE. Pt. states that she has anxiety w/things over her face and cannot tolerate BiPAP or CPAP. Supplemental O2 w/titration and SpO2 monitoring. Will change NC to Oxymask if needed. Continue pts. inhalers for COPD. Falls/safety precautions and up w/ assist d/t SOB/dyspnea. 06/05 Continue with nasal cannula maintaining a strict 2 g and 88% Continue with diuretics Continue with bronchodilators and steroids 06/06 improving cont as above 06/07 Source of breath is improving continue with nasal cannula maintaining SPO2 greater than 88% Continue diuretics Continue with bronchodilators and steroids 06/08 Shortness of breath has improved we will continue to titrate maintaining SPO2 greater than 88 Decrease diuretics Continue with bronchodilators and steroids 06/09 She has had difficulty breathing overnight requiring increase in O2 to 4L NC hold diuretics Check CXR Consult pulmonology CTA 06/10 CTA does show Soft tissue mass centered at the right hilum and right upper lobe with associated right upper lobe collapse and occlusion of right upper lobe bronchus, compatible with lung malignancy. The posterior margin of the mass distorts or extends through the right major fissure. Nixon metastatic disease within the precarinal region. Basilar mucous plugging and bibasilar opacity, likely reflecting atelectasis in the absence of clinical signs or symptoms of pneumonia. Trace pleural effusions. No findings to suggest large central pulmonary embolism. Previous CT of chest 05/08-which did show a probable perihilar right pulmonary lung cancer causing obstructive lobar atelectasis on the right upper and middle pulmonary lobe extending into the medial visceral pleura. There was mild lymph node enlargement suspicious for mediastinal lymph node metastasis. She underwent a bronchoscopy on 05/09/2018 which showed right upper lobe mass with a right upper lobe completely occluded due to Endo bronchial disease and extrinsic compression. Right middle lobe was occluded due to extrinsic compression. Right lower lobe basal segment was patent with extrinsic compression. Precarinal and right upper lobe mass were biopsied. Biopsy was consistent with adenocarcinoma and precarinal and right upper lobe lung mass. According nursing staff patient slept well overnight continue with oxygen 4 L nasal cannulla Pulmonology has been consult and appreciate recommendations-we will add flutter valve prolapse mentation (6) HLD (hyperlipidemia) Current Visit: Yes Status: Chronic Assessment and Plan: Hx of chronic HLD. Continue pts. Lipitor. (7) HTN (hypertension) Current Visit: Yes Status: Chronic Assessment and Plan: Hx of chronic HTN. Monitor pt. and VS. Continue pts. lisinopril. IVP hydralazine ordered w/parameters. (8) Hiatal hernia Current Visit: Yes Status: Chronic Assessment and Plan: Hx of chronic hiatal hernia. Continue pts. Nexium. (9) DVT prophylaxis Current Visit: Yes Status: Acute Assessment and Plan: SQ heparin 5,000 units Q8HR for DVT prophylaxis. Monitor pt. for signs of bleeding. (10) Tobacco abuse Current Visit: Yes Status: Chronic Assessment and Plan: Hx of chronic tobacco abuse. Pt. reports smoking 1 cigarette daily. 14 mg. nicotine patch ordered daily. (11) Mass of upper lobe of right lung Current Visit: Yes Status: Acute Assessment and Plan: Hx of recent dx of adenocarcinoma of RUL. Pt. has been unable to undergo further testing d/t inability to lay flat. Pt. to [facility] as well as Dr. Ramos of [facility]. 06/09 CXR Right upper lobe collapse, similar to prior, suspicious for underlying mass. Chest CT is suggested for further evaluation if not already performed. will obtain CTA 06/10 CTA does show Soft tissue mass centered at the right hilum and right upper lobe with associated right upper lobe collapse and occlusion of right upper lobe bronchus, compatible with lung malignancy. The posterior margin of the mass distorts or extends through the right major fissure. Nixon metastatic disease within the precarinal region. Basilar mucous plugging and bibasilar opacity, likely reflecting atelectasis in the absence of clinical signs or symptoms of pneumonia. Trace pleural effusions. No findings to suggest large central pulmonary embolism. Previous CT of chest 05/08-which did show a probable perihilar right pulmonary lung cancer causing obstructive lobar atelectasis on the right upper and middle pulmonary lobe extending into the medial visceral pleura. There was mild lymph node enlargement suspicious for mediastinal lymph node metastasis. She underwent a bronchoscopy on 05/09/2018 which showed right upper lobe mass with a right upper lobe completely occluded due to Endo bronchial disease and extrinsic compression. Right middle lobe was occluded due to extrinsic compression. Right lower lobe basal segment was patent with extrinsic compression. Precarinal and right upper lobe mass were biopsied. Biopsy was consistent with adenocarcinoma and precarinal and right upper lobe lung mass. I did speak with pulmonology who agrees with current treatment plan I also did speak with oncology Elizabeth rivera and will review records and discussed with Dr. Krishnan I will consult palliative (12) Hyponatremia Current Visit: Yes Status: Acute - Time Spent with Patient Total time spent is greater than 50% in coordination of care (as documented) at patient's floor/unit and/or counseling patient: Internal Medicine: Result - Labs CBC & Chem 7: 06/10/18 04:30 06/10/18 04:30 Labs: Short CBC 06/10/18 Range/Units 04:30 WBC 20.7 H (4.3-11.1) K/mcL Hgb 10.5 L (11.5-15.4) g/dL Hct 34.0 L (35.3-44.9) % Plt Count 262 (140-400) K/mcL Neutrophils # 17.6 H (1.6-8.9) K/mcL BMP 06/10/18 04:30 Sodium 136 Potassium 4.1 Chloride 92 L Carbon Dioxide 37 H BUN 14 Creatinine 0.68 Glucose 137 H Calcium 9.5 - ABG Interpretation ABG results: ABG ABG pH 7.42 pH Units (7.32-7.45) 06/09/18 23:34 ABG pCO2 63 mmHg (35-45) H 06/09/18 23:34 ABG pO2 66 mmHg (85-104) L 06/09/18 23:34 ABG O2 Saturation 92 % (95-98) L 06/09/18 23:34 - Impressions Impressions Chest X-Ray 06/09/18 08:11 IMPRESSION: Right upper lobe collapse, similar to prior, suspicious for underlying mass. Chest CT is suggested for further evaluation if not already performed. Developing left basilar atelectasis. D/ / Lucio Santamaria MD / Lucio Santamaria MD Interpreting Provider: Lucio Santamaria MD Chest CTA 06/09/18 10:07 IMPRESSION: Soft tissue mass centered at the right hilum and right upper lobe with associated right upper lobe collapse and occlusion of right upper lobe bronchus, compatible with lung malignancy. The posterior margin of the mass distorts or extends through the right major fissure. Nixon metastatic disease within the precarinal region. Basilar mucous plugging and bibasilar opacity, likely reflecting atelectasis in the absence of clinical signs or symptoms of pneumonia. Trace pleural effusions. No findings to suggest large central pulmonary embolism. D/ / Lucio Santamaria MD / Lucio Santamaria MD Interpreting Provider: Lucio Santamaria MD - VTE Documentation of Mechanical Device: Intermittent pneumatic compression device Consult Discharge Plan - Plan Referrals: Kavon Lucas DO [Primary Care Provider] - 06/11/18 2:45 pm (3) CHF (congestive heart failure) Qualifiers: Heart failure type: unspecified (6) HLD (hyperlipidemia) Qualifiers: Hyperlipidemia type: pure hypercholesterolemia Qualified Code(s): E78.00 - Pure hypercholesterolemia, unspecified; E78.0 - Pure hypercholesterolemia (7) HTN (hypertension) Qualifiers: Hypertension type: essential hypertension Qualified Code(s): I10 - Essential (primary) hypertension
[2018-06-10 11:41] VITALS: BP 188/74
[2018-06-10] MEDS: Acetaminophen 325 MG TABLET PO PRN (12:52)
--- NOTE | 2018-06-10 13:47 | Discharge Summary ---
- NOTES TO OUTPATIENT PROVIDER Notes to Outpatient Provider: Patient left AGAINST MEDICAL ADVICE-I did give a prescription of a long steroid taper and can take 10 mg of prednisone daily once taper is completed. I also gave patient a prescription for Augmentin and doxycycline I advised patient to follow-up with primary care and oncology Date of Encounter: 06/10/18 Time of Encounter: 13:43 - Discharge Diagnosis (1) COPD exacerbation Priority: Primary Status: Acute Code(s): J44.1 - Chronic obstructive pulmonary disease with ( acute) exacerbation (2) Bronchitis Priority: Primary Status: Acute (3) CHF (congestive heart failure) Priority: Secondary Status: Chronic Qualifiers: Heart failure type: unspecified Heart failure chronicity: chronic Qualified Code(s): I50.9 - Heart failure, unspecified (4) Pedal edema Priority: Secondary Status: Acute (5) SOB (shortness of breath) Priority: Secondary Status: Acute (6) HLD (hyperlipidemia) Priority: Secondary Status: Chronic Qualifiers: Hyperlipidemia type: pure hypercholesterolemia Qualified Code(s): E78.00 - Pure hypercholesterolemia, unspecified; E78.0 - Pure hypercholesterolemia (7) HTN (hypertension) Priority: Secondary Status: Chronic Qualifiers: Hypertension type: essential hypertension Qualified Code(s): I10 - Essential (primary) hypertension (8) Hiatal hernia Priority: Secondary Status: Chronic (9) Tobacco abuse Priority: Secondary Status: Chronic (10) Mass of upper lobe of right lung Priority: Primary Status: Acute (11) Hyponatremia Priority: Secondary Status: Acute Hospital course: Ms. 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 Diffuse approximately 2 weeks ago bilateralswelling evaluated on 73, for biopsy of right upper lobe was receiving of Lasix. Previous history of venous thrombus embolism she has been sleeping in a chair since May due to orthopnea. She was admitted and aggressively diuresed and given antibiotic steroids by IV without significant improvement in her pulmonary status chest x-ray was obtained which did reveal right upper lobe collapse similar to prior suspicious for underlying mass patient was medicated for anxiety and what underwent a chest CTA which did reveal soft tissue mass at the right hilum and right upper lobe with associated right upper lobe collapse and occlusion of right upper lobe bronchus compatible with lung malignancy. The posterior margin of the mass distorts her extended through the right major fissure. Nixon metastatic disease within the precarinal region. Basilar mucous plugging and bibasilar opacity likely reflecting atelectasis in the absence of clinical signs or symptoms of pneumonia trace pleural effusions. No findings of pulmonary embolism. Pulmonology was consulted and recommended continue treatment plan and possible palliative consult. Oncology was consulted -who will review case and clear if patient will benefit from radiation treatment due to intolerance-may require palliative treatment. This morning I did speak with the family as well as the patient concerning treatment plan as well as palliative consult. Patient became very agitated and upset requesting to be discharged AGAINST MEDICAL ADVICE. I did explain in detail the risks of signing out AMA and her present respiratory state. Patient verbalized that she understood that she could and accepts that risk. I did discuss with pulmonology patient's request sign out AMA. He advised to send her home with a long steroid taper and continue her on 10 mg once steroid is completed. Also advised to send home antibiotic coverage. Patient was seen by oncology as well as Palliative. Again expresses that she would like to sign out AGAINST MEDICAL ADVICE. Patient family requesting patient DNR paperwork which nursing staff did provide. Patient did sign out AGAINST MEDICAL ADVICE - Time Spent with Patient Total time spent providing and/or coordinating discharge services: - Discharge Medications Prescriptions: Amoxicillin/Clavulanate [Augmentin] 875 mg PO BIDWM 8 Days #16 tablet Doxycycline 100 mg PO BID #16 capsule predniSONE [PredniSONE] 10 mg PO DAILY #130 tablet Home Medications: Albuterol Sulfate [Albuterol Inhaler] 0 puff IH Q4HR 05/28/18 [History] Aspirin Enteric Coated [Aspirin EC] 81 mg PO DAILY 05/28/18 [History] Atorvastatin [Lipitor] 10 mg PO HS 05/28/18 [History] Buspirone HCl [Buspar] 15 mg PO TID PRN 05/28/18 [History] Esomeprazole Magnesium [Nexium] 20 mg PO DAILY 05/28/18 [History] Furosemide [Lasix] 80 mg PO DAILY 05/28/18 [History] Ipratropium/Albuterol Sulfate [Iprat-Albut 0.5-3(2.5) mg/3 ml] 3 ml IH Q4H PRN 05/28/18 [History] Lisinopril [Zestril] 10 mg PO DAILY 05/28/18 [History] Oxygen 1 each .ROUTE AD 05/28/18 [History] Tiotropium [Spiriva] 18 mcg IH 0700 05/28/18 [History] Mometasone/Formoterol [Dulera 200 Mcg/5 Mcg Inhaler] 2 puff IH BID 06/04/18 [ History] levoFLOXacin [Levaquin] 500 mg PO DAILY 06/04/18 [History] predniSONE [PredniSONE] 60 mg PO DAILY 06/04/18 [History] Amoxicillin/Clavulanate [Augmentin] 875 mg PO BIDWM 8 Days #16 tablet 06/10/18 [ Rx] Doxycycline 100 mg PO BID #16 capsule 06/10/18 [Rx] predniSONE [PredniSONE] 10 mg PO DAILY #130 tablet 06/10/18 [Rx] Allergies/Adverse Reactions: 3 Allergy/AdvReac Type Severity Reaction Status Date / Time Erythromycin Base AdvReac Rash Verified 05/28/18 14:59 Date of admission: 06/06/18 09:40 Primary care physician: Kavon Lucas Consults: 06/09/18 09:13 Consult to Pulmonology [CONS] Routine Consulting Provider: [facility] Reason for Consult: Adenocarcinoma of right lung - pneumonia-COPD Time Notified: 09:15 Call Completed: Yes 06/10/18 09:30 Consult to Respiratory Therapy [CONS] Routine Reason for Consult: Flutter valve Time Notified: 09:31 Call Completed: No 06/10/18 09:31 Consult to Oncology [CONS] Routine Consulting Provider: [facility] Reason for Consult: Adenocarcinoma of the right lung Time Notified: 09:32 Call Completed: Yes 06/10/18 09:32 Consult to Palliative Care [CONS] Routine Comment: Consulting Provider: [facility] Reason for Consult: Adenocarcinoma of the right lung Time Notified: 09:32 Call Completed: Yes - Constitutional Vitals: Temp Pulse Resp BP Pulse Ox 97 F L 78 17 188/74 97 06/10/18 11:37 06/10/18 11:37 06/10/18 11:37 06/10/18 11:37 06/10/18 11:37 General appearance: Present: cooperative, mild distress (Respiratory SOB), A&O X 3, pleasant, obese, answers questions appropriately Exam: General appearance: Present: A&O X 3, agitated obese, answers questions appropriately Patient would not permit me to perform physical exam - Patient Status Disposition: Left Against Medical Advice Condition: Fair - Discharge Instructions Follow Up With: Kavon Lucas DO [Primary Care Provider] - 06/11/18 2:45 pm - VTE Documentation of Mechanical Device: Intermittent pneumatic compression device
--- NOTE | 2018-06-10 14:56 | Palliative - Consult Note ---
Date of Encounter: 06/10/18 Time of Encounter: 14:00 - Assessment and Plan (1) COPD exacerbation Current Visit: Yes Status: Acute Assessment and plan: Pulmonary consulted; plans to follow up with personal Pulmonary Physician outpatient. (2) CHF (congestive heart failure) Current Visit: Yes Status: Chronic Assessment and plan: EF >70%. Qualifiers: Heart failure type: unspecified Heart failure chronicity: chronic Qualified Code(s): I50.9 - Heart failure, unspecified (3) Mass of upper lobe of right lung Current Visit: Yes Status: Acute Assessment and plan: Patient of Dr. Krishnan for radiation; following up Sunday. (4) Carcinoma of lung Current Visit: Yes Status: Acute Assessment and plan: Sees Oncology. Qualifiers: Laterality: right Qualified Code(s): C34.91 - Malignant neoplasm of unspecified part of right bronchus or lung (5) Goals of care, counseling/discussion Current Visit: Yes Status: Acute Assessment and plan: Patient and daughter present for goals of care discussion. Desires to follow up outpatient with Dr. Krishnan in attempt to shrink tumor. Confirmed CODE STATUS with differentiation of types of CODE STATUS; Verbalized understanding. Patient plans to continue to see Oncology and Pulmonary as long as she can. Explained hospice service, what could be offered and when appropriate time to sign of up hospice; verbalized understanding. Reports will call hospice once she is finished cancer treatment, whether for no further treatment options available versus a time of no longer tolerating treatments. Patient's daughter Elma in agreement. Patient plans to be discharged today. Palliative-CN HPI - Data of Consult Patient: new to practice Consult date: 06/10/18 Requesting Physician: Akshat Vogt MD Primary Care Provider: Kavon Lucas - Consult Narrative Palliative Care/Comfort Measures: Palliative care Reason for consult: Adenocarcinoma or the right lung History of present illness: Ms. Looney is a 73 year old female Arrived to [place] [facility] on 06/04/18 from home due to BLE edema and anxiety. PMH: COPD, CHF, HTN, Hiatal hernia, and Adenocarcinoma. Patient had been released from [facility] day prior to admission with steroids and Levaquin for COPDE versus Pneumonia. Patient was to have PET scan with Dr. Krishnan; however , was unable to lay flat. Chest x-ray showing: Hazy opacification of the right upper lobe secondary to a large right upper lobe mass identified on previous chest CT of 05/08/2018. EKG: NSR. Venous Duplex Results: Right: Venous imaging of the lower extremity reveals full patency and normal vessel compressibility of the right distal iliac, right common femoral, right superficial femoral, right popliteal, right posterior tibial, right peroneal, right great saphenous and right lesser saphenous. Doppler signals in the evaluated veins were normal. Left: Venous imaging of the lower extremity reveals full patency and normal vessel compressibility of the left distal iliac, left common femoral, left superficial femoral, left popliteal, left posterior tibial, left peroneal, left great saphenous and left lesser saphenous. Doppler signals in the evaluated veins were normal. ECHO: LVEF >70%. Patient admitted and medically managed for: COPDE, Bronchitis, CHF, Pedal edema, Dyspnea, HLD, HTN, Hyponatremia, Mass of upper lobe of right lung. Chest CT performed, showing: Soft tissue mass centered at the right hilum and right upper lobe with associated right upper lobe collapse and occlusion of right upper lobe bronchus , compatible with lung malignancy; The posterior margin of the mass distorts or extends through the right major fissure; Nixon metastatic disease within the precarinal region; Basilar mucous plugging and bibasilar opacity, likely reflecting atelectasis in the absence of clinical signs or symptoms of pneumonia ; Trace pleural effusions; and No findings to suggest large central pulmonary embolism. Pulmonary consulted for management of Acute and chronic respiratory failure with hypoxia, COPDE, Metabolic alkalosis, and carcinoma of lung; recommend CTA of chest, Oxygen supplementation, and Antibiotics. 06/09/18: Patients code status changed to DNRCCA/DNI. 06/10/18: Primary team alerted patient was agitated and desired to leave hospital AMA; discussed plan to see Oncology first, patient agreed. Palliative care consulted for goals of care discussion. Patient sitting up on at bedside upon arrival. Patient alert and oriented times three, daughter Elma present at bedside. Patient reports she is going home today and following up with Dr. Krishnan outpatient Sunday for radiation. Denies pain, anxiety, dyspnea, nausea, and vomiting. CC: Akshat Vogt MD - Time Spent with Patient Time: Total time spent is greater than 50% in coordination of care (as documented) at patient's floor/unit and/or counseling patient: 25 - 35 minutes Past Med Surg Social Fam HX - Past Medical History Medical history: CHF, COPD, hyperlipidemia, hypertension, other (Hiatal hernia) Additional medical history: lung cancer, adeno carcinoma, Psychiatric history: anxiety - Past Surgical History Surgical History: hysterectomy - Social History Smoking Status: Current every day smoker Packs per day: 1 cigarette daily Smokeless Tobacco Status: No Alcohol use: none Drug use: none - Family History Father Race: Family Member Ethnicity: Non- Living Status: Age at : 72 Cause of : Blood clot Hx Family Cardiac Disorders: Yes (Heart valve issues, DVT) Hx Family Respiratory Disorders: Yes (Black lung) Sister Race: Family Member Ethnicity: Non- Living Status: Age at : 32 Cause of : Suicide Hx Family Respiratory Disorders: Yes (COPD) Hx Family Cancer: Yes (Colon cancer) Mother Race: Family Member Ethnicity: Non- Living Status: Age at : 93 Cause of : Pneumonia Hx Family Cardiac Disorders: Yes Hx Family Cancer: Yes (Skin cancer) Hx Family Neurologic Disorders: Yes (Dementia) Medications and Allergies Albuterol Sulfate [Albuterol Inhaler] 0 puff IH Q4HR 05/28/18 [History] Aspirin Enteric Coated [Aspirin EC] 81 mg PO DAILY 05/28/18 [History] Atorvastatin [Lipitor] 10 mg PO HS 05/28/18 [History] Buspirone HCl [Buspar] 15 mg PO TID PRN 05/28/18 [History] Esomeprazole Magnesium [Nexium] 20 mg PO DAILY 05/28/18 [History] Furosemide [Lasix] 80 mg PO DAILY 05/28/18 [History] Ipratropium/Albuterol Sulfate [Iprat-Albut 0.5-3(2.5) mg/3 ml] 3 ml IH Q4H PRN 05/28/18 [History] Lisinopril [Zestril] 10 mg PO DAILY 05/28/18 [History] Oxygen 1 each .ROUTE AD 05/28/18 [History] Tiotropium [Spiriva] 18 mcg IH 0700 05/28/18 [History] Mometasone/Formoterol [Dulera 200 Mcg/5 Mcg Inhaler] 2 puff IH BID 06/04/18 [ History] levoFLOXacin [Levaquin] 500 mg PO DAILY 06/04/18 [History] predniSONE [PredniSONE] 60 mg PO DAILY 06/04/18 [History] Amoxicillin/Clavulanate [Augmentin] 875 mg PO BIDWM 8 Days #16 tablet 06/10/18 [ Rx] Doxycycline 100 mg PO BID #16 capsule 06/10/18 [Rx] predniSONE [PredniSONE] 10 mg PO DAILY #130 tablet 06/10/18 [Rx] 3 Allergy/AdvReac Type Severity Reaction Status Date / Time Erythromycin Base AdvReac Rash Verified 05/28/18 14:59 - Constitutional Constitutional ROS PAL: no frequent falls, no lethargy - Cardiovascular Cardiovascular ROS: no chest pain - Respiratory Respiratory: dyspnea - Gastrointestinal Gastrointestinal: no abdominal pain, no nausea, no vomiting - Genitourinary Palliative ROS female: no change in urinary stream, no difficulty voiding - Psychiatric Psychiatric general PM: anxiety Palliative Care-Exam - Constitutional Vitals: Temp Pulse Resp BP Pulse Ox 97 F L 78 18 188/74 98 06/10/18 11:37 06/10/18 11:37 06/10/18 14:36 06/10/18 11:37 06/10/18 14:36 General appearance: Present: cooperative, no acute distress - Head Head Exam: Present: atraumatic, normal inspection - Expanded Head Exam Head exam expanded IM: Absent: raccoon eyes - Eye Eye exam: Present: PERRL. Absent: periorbital swelling, periorbital tenderness Pupils: Present: normal accommodation, PERRL - ENT ENT exam: Present: mucous membranes moist, normal external ear exam - Neck Neck exam: Present: full ROM, normal inspection - Respiratory Respiratory exam: Present: rhonchi. Absent: accessory muscle use, respiratory distress - Cardiovascular Cardiovascular exam: Present: +S1, +S2 - Expanded Cardiovascular Exam Peripheral pulses: 1+: Posterior Tibialis (L), Posterior Tibialis (R), Dorsalis Pedis (L) PM, Dorsalis Pedis (R) PM, 2+: Radial (L), Radial (R) - GI/Abdominal Exam GI/Abdominal exam: Present: diminished bowel sounds, soft. Absent: tenderness - Rectal Rectal exam: Present: deferred - Extremities Exam Extremities exam: Present: pedal edema. Absent: calf tenderness - Back Exam Back exam: Present: normal inspection - Neurological Exam Neurological exam: Present: alert, oriented X3, strengths equal and symetr throughout. Absent: altered - Expanded Neurological Exam Coma Scale Eye Opening: Spontaneous Coma Scale Motor Response: Obeys Commands Coma Scale Verbal Response: Oriented Coma Scale Total: 15 - Psychiatric Psychiatric exam: Present: normal affect, normal mood - Skin Skin exam: Present: dry, intact Internal Medicine - CN: Reslt - Labs CBC & Chem 7: 06/10/18 04:30 06/10/18 04:30 Labs: Short CBC 06/10/18 Range/Units 04:30 WBC 20.7 H (4.3-11.1) K/mcL Hgb 10.5 L (11.5-15.4) g/dL Hct 34.0 L (35.3-44.9) % Plt Count 262 (140-400) K/mcL Neutrophils # 17.6 H (1.6-8.9) K/mcL BMP 06/10/18 04:30 Sodium 136 Potassium 4.1 Chloride 92 L Carbon Dioxide 37 H BUN 14 Creatinine 0.68 Glucose 137 H Calcium 9.5 - ABG Interpretation ABG results: ABG ABG pH 7.42 pH Units (7.32-7.45) 06/09/18 23:34 ABG pCO2 63 mmHg (35-45) H 06/09/18 23:34 ABG pO2 66 mmHg (85-104) L 06/09/18 23:34 ABG O2 Saturation 92 % (95-98) L 06/09/18 23:34 Consult Discharge Plan - Plan Referrals: Kavon Lucas DO [Primary Care Provider] - 06/11/18 2:45 pm Prescriptions: Amoxicillin/Clavulanate [Augmentin] 875 mg PO BIDWM 8 Days #16 tablet Doxycycline 100 mg PO BID #16 capsule predniSONE [PredniSONE] 10 mg PO DAILY #130 tablet Palliative Quality Palliative Quality: Screen for Code Status: Yes, Screen for Goals of Care: Yes, Screen for Pain: Yes, If Pain Regimen Started, Initiate Bowel Regimen: NA, Screen for Nausea/Vomitting: Yes Code Status: 06/09/18 20:25 DNR [Resuscitation Status: Active] [RES] Routine Comment: Discussed new Code Status w/pt. and family Resuscitation Status: [id number]
--- NOTE | 2018-06-10 15:04 | Oncology Inp Consult Note ---
Date of Encounter: 06/10/18 Time of Encounter: 13:00 Assessment and Plan (1) Carcinoma of lung Status: Acute Assessment and plan: I discussed patients case with Dr. Krishnan, treating radiation oncologist. As detailed in HPI, Ms. Looney has unfortunately been unable to tolerate staging scans or CT-simulation secondary to her acute on chronic respiratory failure. Her respiratory function has improved during her hospital stay with aggressive diuresis, IV ATB and high dose IV steroids, however, I am still concerned as to whether her respiratory status has improved to the point that she may still even tolerate CT-sim or further scans. She would benefit from continued inpatient management, however, is adamant on leaving today AMA. We discussed risks and potential repercussions of leaving AMA. In regards to her treatment plan of care, Dr. Krishnan will plan to assess Ms. Looney on Sunday of this week with further recommendations which may include options for palliative radiotherapy in a more upright position or further discussion with medical oncology for potential systemic treatment options which may be of palliative benefit. The plan as above was discussed with patient and outpatient follow up information was provided. She was instructed to contact us in the meantime with any further questions or concerns. Qualifiers: Laterality: right Qualified Code(s): C34.91 - Malignant neoplasm of unspecified part of right bronchus or lung - Data of Consult Requesting Physician: Akshat Vogt MD Primary Care Provider: Kavon Lucas - Consult Narrative Reason for consult: Lung adnocarcinoma History of present illness: Ms. Looney is a 73 year old female with recently diagnosed adenocarcinoma of the right upper lobe s/p bronchoscopy on 05/09/2018 with FNA from [facility] mass and precarinal lymph node. CT abdomen/pelvis was obtained without evidence of metastatic disease. A PET/CT and brain MRI was recommended to complete staging workup up by her medical oncologist Dr. Wyman. Unfortunately, she was unable to lie flat long enough to tolerate these diagnostics. She also met with Dr. Krishnan, radiation oncologist, on 05/29/2018. It was felt that given her poor performance status she would not tolerate concurrent chemoradiation. Up front radiotherapy was recommended in light of her bilobar collapse and poor respiratory function. Unfortunately, she was unable to lie flat long enough to tolerate CT-simulation, she was sent home without completion of imaging with the plan to optimize her respiratory function with diuresis and have her RTC once this improves. On 06/04/2018 Ms. Looney presented to [facility] for worsening dyspnea. She was admitted with COPD exacerbation, acute on chronic respiratory failure and CHF. She has been aggressively diuresed, given antibiotic and steroids by IV without significant overall improvement in her pulmonary status. Ms. Looney was premedicated to allow for CTA which did reveal soft tissue mass at the right hilum and right upper lobe with associated right upper lobe collapse and occlusion of right upper lobe bronchus compatible with lung malignancy. The posterior margin of the mass distorts her extended through the right major fissure. Nixon metastatic disease within the precarinal region. Basilar mucous plugging and bibasilar opacity likely reflecting atelectasis in the absence of clinical signs or symptoms of pneumonia trace pleural effusions. No findings of pulmonary embolism. Past Med Surg Social Fam HX - Past Medical History Medical history: CHF, COPD, hyperlipidemia, hypertension, other (Hiatal hernia) Additional medical history: lung cancer, adeno carcinoma, Psychiatric history: anxiety - Past Surgical History Surgical History: hysterectomy - Social History Smoking Status: Current every day smoker Packs per day: 1 cigarette daily Smokeless Tobacco Status: No Alcohol use: none Drug use: none - Family History Father Race: Family Member Ethnicity: Non- Living Status: Age at : 72 Cause of : Blood clot Hx Family Cardiac Disorders: Yes (Heart valve issues, DVT) Hx Family Respiratory Disorders: Yes (Black lung) Sister Race: Family Member Ethnicity: Non- Living Status: Age at : 32 Cause of : Suicide Hx Family Respiratory Disorders: Yes (COPD) Hx Family Cancer: Yes (Colon cancer) Mother Race: Family Member Ethnicity: Non- Living Status: Age at : 93 Cause of : Pneumonia Hx Family Cardiac Disorders: Yes Hx Family Cancer: Yes (Skin cancer) Hx Family Neurologic Disorders: Yes (Dementia) Medications and Allergies Albuterol Sulfate [Albuterol Inhaler] 0 puff IH Q4HR 05/28/18 [History] Aspirin Enteric Coated [Aspirin EC] 81 mg PO DAILY 05/28/18 [History] Atorvastatin [Lipitor] 10 mg PO HS 05/28/18 [History] Buspirone HCl [Buspar] 15 mg PO TID PRN 05/28/18 [History] Esomeprazole Magnesium [Nexium] 20 mg PO DAILY 05/28/18 [History] Furosemide [Lasix] 80 mg PO DAILY 05/28/18 [History] Ipratropium/Albuterol Sulfate [Iprat-Albut 0.5-3(2.5) mg/3 ml] 3 ml IH Q4H PRN 05/28/18 [History] Lisinopril [Zestril] 10 mg PO DAILY 05/28/18 [History] Oxygen 1 each .ROUTE AD 05/28/18 [History] Tiotropium [Spiriva] 18 mcg IH 0700 05/28/18 [History] Mometasone/Formoterol [Dulera 200 Mcg/5 Mcg Inhaler] 2 puff IH BID 06/04/18 [ History] levoFLOXacin [Levaquin] 500 mg PO DAILY 06/04/18 [History] predniSONE [PredniSONE] 60 mg PO DAILY 06/04/18 [History] Amoxicillin/Clavulanate [Augmentin] 875 mg PO BIDWM 8 Days #16 tablet 06/10/18 [ Rx] Doxycycline 100 mg PO BID #16 capsule 06/10/18 [Rx] predniSONE [PredniSONE] 10 mg PO DAILY #130 tablet 06/10/18 [Rx] 3 Allergy/AdvReac Type Severity Reaction Status Date / Time Erythromycin Base AdvReac Rash Verified 05/28/18 14:59 Constitutional: Present: anorexia, fatigue, weakness, weight loss. Absent: chills, fever(s) Eyes: Absent: change in vision Nose, mouth and throat: Absent: dysphagia, odynophagia Cardiovascular: Absent: chest pain Respiratory: Present: as per HPI, cough, dyspnea, wheezing. Absent: hemoptysis Gastrointestinal: Absent: abdominal pain, change in bowel habits, nausea, vomiting Genitourinary: Absent: dysuria Musculoskeletal: Present: muscle weakness Integumentary: Absent: wounds Neurological: Absent: focal weakness, frequent falls Psychiatric: Present: as per HPI Hematologic/Lymphatic: Present: as per HPI Oncology - Exam - Constitutional Vitals: Temp Pulse Resp BP Pulse Ox 97 F L 78 18 188/74 98 06/10/18 11:37 06/10/18 11:37 06/10/18 14:36 06/10/18 11:37 06/10/18 14:36 General appearance: cooperative, no acute distress, no febrile Exam: mildly labored respirations at rest - Head Head exam: Present: atraumatic - ENT ENT exam: Present: mucous membranes moist - Respiratory Respiratory exam: Present: decreased breath sounds, rhonchi, wheezes - Cardiovascular Cardiovascular exam: Present: RRR, +S1, +S2 - GI/Abdominal GI/Abdominal exam: Present: normal bowel sounds, soft. Absent: tenderness - Extremities Exam Extremities exam: Absent: calf tenderness - Neurological Exam Neurological exam: Present: alert, oriented X3, no focal deficits, strengths equal and symetr throughout - Psychiatric Psychiatric exam: Present: flat affect - Skin Skin exam: Present: dry, intact, normal color, warm Consult Discharge Plan - Plan Referrals: Kavon Lucas DO [Primary Care Provider] - 06/11/18 2:45 pm Prescriptions: Amoxicillin/Clavulanate [Augmentin] 875 mg PO BIDWM 8 Days #16 tablet Doxycycline 100 mg PO BID #16 capsule predniSONE [PredniSONE] 10 mg PO DAILY #130 tablet Inpatient Charges Provider: Elizabeth Wise CNP Consult - Inpatient: [id number]
== END 2018-06-10 15:44 | disposition left against medical advice (07) | DRG 190 ==
LOC: 3BNU 09:23 → EMEROOARM 09:23 → 3BNU 13:04
PROVIDERS: ADMIT Internal Medicine; ATTEND Internal Medicine